=== PATIENT | female | born 1945 | race Caucasian/White ===

== ENCOUNTER 2016-06-18 12:05 | Emergency (ER) | payer OTHER ==
[2016-06-18 12:10] VITALS: TEMP 98.2; BMI 28.0
--- NOTE | 2016-06-18 12:46 | PDOC ---
History of Present Illness - General History Source: Patient Exam Limitations: No Limitations - History of Present Illness Initial Comments: 06/18/16 12:59 The patient is a 70 year old female with a significant past medical history of IDDM (Lantus and Metformin) and hypercholesterolemia, who presents to the ER with high blood sugar (over 300) this morning and cough for one week. Patient states her blood sugar is out of control today. She says she took her regular dose of diabetes medication, without relief of symptoms. Patient says she has had a cough and left ear pain for one week. She says she came to the ER to get antibiotics for her symptoms. Patient says she has a diabetic doctor and no PCP. She reports she is unaware of what to do when her sugar is that high and says she never discussed it with her diabetic doctor. Denies nausea, vomiting, diarrhea Denies fever, chills Denies headache, dizziness, lightheadedness Allergies: NKDA <Alma Rosa Cooley - Last Filed: 06/18/16 14:35> <Hay Harris - Last Filed: 06/18/16 15:06> - General Chief Complaint: Blood Sugar Problem Stated Complaint: COUGH Time Seen by Provider: 06/18/16 12:41 Past History <Alma Rosa Cooley - Last Filed: 06/18/16 14:35> - Past Medical History Diabetes: Yes Hypercholesterolemia: Yes - Psycho/Social/Smoking Cessation Hx Anxiety: No Suicidal Ideation: No Smoking Status: No Smoking History: Never smoked Number of Cigarettes Smoked Daily: 0 Hx Alcohol Use: No Drug/Substance Use Hx: No Substance Use Type: None <Hay Harris - Last Filed: 06/18/16 15:06> - Past Medical History Allergies/Adverse Reactions: Allergies Allergy/AdvReac Type Severity Reaction Status Date / Time No Known Allergies Allergy Verified 06/18/16 12:10 Home Medications: Ambulatory Orders Insulin Glargine,Hum.rec.anlog [Lantus Solostar PEN] 50 units SQ HS 07/01/12 Atorvastatin Ca [Lipitor -] 10 mg PO DAILY 03/18/14 Metformin HCl [Metformin HCl ER] 100 mg PO DAILY 03/18/14 Levofloxacin [Levaquin] 750 mg PO DAILY #10 tablet 06/18/16 Review of Systems - Review of Systems Able to Perform ROS?: Yes Comments:: 06/18/16 12:59 GENERAL/CONSTITUTIONAL: No fever or chills. No weakness. HEAD, EYES, EARS, NOSE AND THROAT: L ear pain. No change in vision. No ear discharge. No sore throat. CARDIOVASCULAR: No chest pain or shortness of breath. RESPIRATORY: Cough. No wheezing, or hemoptysis. GASTROINTESTINAL: No nausea, vomiting, diarrhea or constipation. GENITOURINARY: No dysuria, frequency, or change in urination. MUSCULOSKELETAL: No joint or muscle swelling or pain. No neck or back pain. SKIN: No rash NEUROLOGIC: No headache, vertigo, loss of consciousness, or change in strength/ sensation. ENDOCRINE: No increased thirst. No abnormal weight change. HEMATOLOGIC/LYMPHATIC: No anemia, easy bleeding, or history of blood clots. ALLERGIC/IMMUNOLOGIC: No hives or skin allergy. <Algolux,Alma Rosa - Last Filed: 06/18/16 14:35> *Physical Exam - Vital Signs Last Vital Signs Temp Pulse Resp BP Pulse Ox 98.2 F 105 H 20 152/88 98 06/18/16 12:06 06/18/16 12:06 06/18/16 12:06 06/18/16 12:06 06/18/16 12:06 - Physical Exam Comments: 06/18/16 13:00 GENERAL/CONSTITUTIONAL: No fever or chills. No weakness. HEAD, EYES, EARS, NOSE AND THROAT: No change in vision. No ear pain or discharge. No sore throat. CARDIOVASCULAR: No chest pain or shortness of breath. RESPIRATORY: No cough, wheezing, or hemoptysis. GASTROINTESTINAL: No nausea, vomiting, diarrhea or constipation. GENITOURINARY: No dysuria, frequency, or change in urination. MUSCULOSKELETAL: No joint or muscle swelling or pain. No neck or back pain. SKIN: No rash NEUROLOGIC: No headache, vertigo, loss of consciousness, or change in strength/ sensation. ENDOCRINE: No increased thirst. No abnormal weight change. HEMATOLOGIC/LYMPHATIC: No anemia, easy bleeding, or history of blood clots. ALLERGIC/IMMUNOLOGIC: No hives or skin allergy. <[facility],Alma Rosa - Last Filed: 06/18/16 14:35> - Vital Signs Last Vital Signs Temp Pulse Resp BP Pulse Ox 98.2 F 105 H 20 152/88 98 06/18/16 12:06 06/18/16 12:06 06/18/16 12:06 06/18/16 12:06 06/18/16 12:06 <Hay Harris - Last Filed: 06/18/16 15:06> ED Treatment Course - LABORATORY CBC & Chemistry Diagram: 06/18/16 13:06 06/18/16 13:06 - RADIOLOGY Radiograph Interpretation: 06/18/16 14:35 Chest XR impression reported by Dr. Elliot Jane: No acute pathology. Large heart. No comparison studies. <LenoraAlma Rosa - Last Filed: 06/18/16 14:35> - LABORATORY CBC & Chemistry Diagram: 06/18/16 13:06 06/18/16 13:06 <Hay Harris - Last Filed: 06/18/16 15:06> Medical Decision Making - Medical Decision Making 06/18/16 13:00 Patient is a 70 year old female with a significant past medical history of IDDM. Patient had a blood sugar of about 300 today. She reports she is unaware of what to do when her sugar is that high and says she never discussed it with her diabetic doctor. Will do labs <LenoraAlma Rosa - Last Filed: 06/18/16 14:35> *DC/Admit/Observation/Transfer - Attestations Scribe Attestion: 06/18/16 13:02 Documentation prepared by Alma Rosa Cooley, acting as medical records specialist for Hay Harris DO. <LenoraAlma Rosa - Last Filed: 06/18/16 14:35> - Discharge Dispostion Admit: No - Attestations Physician Attestion: 06/18/16 12:41 I, Dr. Hay Harris, attest that this document has been prepared under my direction and personally reviewed by me in its entirety. I further attest, that it accurately reflects all work, treatment, procedures and medical decision -making performed by me. <Hay Harris - Last Filed: 06/18/16 15:06> Diagnosis at time of Disposition: Bronchitis - Discharge Dispostion Disposition: HOME Condition at time of disposition: Good - Prescriptions Prescriptions: Levofloxacin [Levaquin] 750 mg PO DAILY #10 tablet - Patient Instructions Printed Discharge Instructions: DI for Hyperglycemia -- Adult, DI for Acute Bronchitis Additional Instructions: Jazmín- Start the levaquin tomorrow. Drink plenty of fluids, check your sugars often. Follow up with your doctor next week and return to us if worse or any 0roblems. Jorge- Dr. Hay Harris
[2016-06-18] MEDS ORDERED: SODIUM CHLORIDE 1,000 ML IV STA (12:58)
[2016-06-18 13:25] LABS: BASOPHIL 1.2 % (0-2.0); EOSINOPHIL 2.7 % (0-4.5); MCH 26.7 pg (25.7-33.7); MCHC 32.8 g/dl (32.0-36.0); MEAN CELL VOLUME 81.3 fl (80-96); MEAN PLT VOLUME 7.8 fl (7.5-11.1); NEUTROPHILS 70.2 % (42.8-82.8); PLATELET COUNT 280 K/MM3 (134-434); RDW 12.3 % (11.6-15.6); WHITE BLOOD COUNT 8.6 K/mm3 (4.0-10.0)
[2016-06-18 13:41] LABS: ALK PHOS 185 U/L (45-117); ANION GAP 10 (8-16); BILIRUBIN,TOTAL 0.3 mg/dL (0.2-1.0); CO2 30 mmol/L (21-32); COCKROFT - GAULT 62.05; CREATININE 0.9 mg/dL (0.55-1.02); GLUCOSE,RANDOM 162 mg/dL (74-106); SGOT/AST 16 U/L (15-37); SGPT/ALT 44 U/L (12-78)
[2016-06-18 14:55] LABS: ACETONE SERUM NEGATIVE (NEGATIVE)
[2016-06-18] MEDS ORDERED: LEVOFLOXACIN 250 MG TABLET (FP) ONE (15:13)
[2016-06-18] MEDS ORDERED: LEVOFLOXACIN 500 MG TABLET (FP) ONE (15:13)
[2016-06-18 15:21] VITALS: BP 154/76; PULSE 100
[2016-06-18] MEDS ORDERED: LEVOFLOXACIN 750 MG TABLET PO ONE (15:21)
[2016-06-19] MEDS ORDERED: LEVOFLOXACIN 750 MG TABLET PO ONE (15:03)
== END 2016-06-18 15:22 | disposition home or self-care (01) ==
LOC: JER 12:05
PROC: 3E0337Z Introduction of Electrolytic and Water Balance Substance into Peripheral Vein, Percutaneous Approach (ICD-10-PCS; principal; 2016-06-18)
DX: J40 Bronchitis, not specified as acute or chronic (principal); E11.9 Type 2 diabetes mellitus without complications; E78.00 Pure hypercholesterolemia, unspecified; Z79.4 Long term (current) use of insulin
CPT/HCPCS: 36415; 71010-TC; 80053; 82009; 83880; 85025; 85610; 96360; 99285-25

== ENCOUNTER 2017-08-28 12:36 | Inpatient (IN) | payer OTHER ==
[2017-08-28 12:54] VITALS: BMI 27.4
--- NOTE | 2017-08-28 13:32 | PDOC ---
History of Present Illness - General History Source: Patient Exam Limitations: No Limitations - History of Present Illness Initial Comments: 08/28/17 14:06 The patient is a 71 year old female, with a significant PMH of diabetes and HTN , who presents to the emergency department complaining of dizziness that began yesterday and headache that began this morning. . Patient reports she felt lightheaded and dizzy while at work and had to support herself with the wall. She denies any loss of consciousness. She describes the pain as constant stating that it was the most severe headache shes ever had. The patient has been experiencing recent stress secondary to recently losing her back in Feb 2017. Patient states her last recent travel was 24 days ago to [place]. The patient denies chest pain and shortness of breath.Patient denies tingling and numbness. Denies fever, chills, nausea, vomit, diarrhea and constipation.Denies dysuria, frequency, urgency and hematuria. Allergies: NKDA Past surgical history: None reported Social history: None reported PCP: None reported <Greta Blount - Last Filed: 08/28/17 15:12> - General History Source: Patient Exam Limitations: No Limitations <Kacey Bermudez - Last Filed: 08/29/17 10:50> - General Chief Complaint: Lightheaded Stated Complaint: LIGHTHEADED Time Seen by Provider: 08/28/17 13:13 Past History <Greta Blount - Last Filed: 08/28/17 15:12> - Past Medical History COPD: No DVT: No Dementia: No Diabetes: Yes Hypercholesterolemia: Yes - Immunization History Immunization Up to Date: Yes - Suicide/Smoking/Psychosocial Hx Smoking Status: No Smoking History: Never smoked Have you smoked in the past 12 months: No Number of Cigarettes Smoked Daily: 0 Information on smoking cessation initiated: No Hx Alcohol Use: No Drug/Substance Use Hx: No Substance Use Type: None <Kacey Bermudez - Last Filed: 08/29/17 10:50> - Past Medical History Allergies/Adverse Reactions: Allergies Allergy/AdvReac Type Severity Reaction Status Date / Time No Known Allergies Allergy Verified 08/28/17 12:50 Home Medications: Ambulatory Orders Insulin Glargine,Hum.rec.anlog [Lantus Solostar PEN] 50 units SQ DAILY 07/01/12 Metformin HCl [Metformin HCl ER] 500 mg PO BID 03/18/14 Review of Systems - Review of Systems Able to Perform ROS?: Yes Comments:: 08/28/17 14:12 ADULT ROS GENERAL/CONSTITUTIONAL: No fever or chills. No weakness. HEAD, EYES, EARS, NOSE AND THROAT: No change in vision. No ear pain or discharge. No sore throat. CARDIOVASCULAR: No chest pain or shortness of breath. RESPIRATORY: No cough, wheezing, or hemoptysis. GASTROINTESTINAL: No nausea, vomiting, diarrhea or constipation. GENITOURINARY: No dysuria, frequency, or change in urination. MUSCULOSKELETAL: No joint or muscle swelling or pain. No neck or back pain. SKIN: No rash NEUROLOGIC:+ headache, dizziness. No vertigo loss of consciousness, or change in strength/sensation. ENDOCRINE: No increased thirst. No abnormal weight change. HEMATOLOGIC/LYMPHATIC: No anemia, easy bleeding, or history of blood clots. ALLERGIC/IMMUNOLOGIC: No hives or skin allergy. <Greta Blount - Last Filed: 08/28/17 15:12> *Physical Exam - Vital Signs Last Vital Signs Temp Pulse Resp BP Pulse Ox 97.7 F 62 16 163/68 98 08/28/17 12:51 08/28/17 12:51 08/28/17 12:51 08/28/17 12:51 08/28/17 12:51 - Physical Exam Comments: GENERAL: The patient is in no acute distress. HEAD: Normal with no signs of trauma. EYES: PERRLA, EOMI, sclera anicteric, conjunctiva clear. ENT: Ears normal, nares patent, oropharynx clear without exudates. Moist mucous membranes. NECK: Normal range of motion, supple without lymphadenopathy, JVD, or masses. LUNGS: Breath sounds equal, clear to auscultation bilaterally. No wheezes, and no crackles. HEART:Regular rate and rhythm, normal S1 and S2 without murmur, rub or gallop. ABDOMEN: Soft, nontender, normoactive bowel sounds. No guarding, no rebound. No masses palpable. EXTREMITIES: Normal range of motion, no edema. No clubbing or cyanosis. No erythema, or tenderness. NEUROLOGICAL: Cranial nerves II through XII grossly intact. Normal speech. No focal neurological deficits. MUSCULOSKELETAL: Back non-tender to palpation, no CVA tenderness SKIN: Warm, Dry, normal turgor, no rashes or lesions noted. 08/28/17 14:09 <Greta Blount - Last Filed: 08/28/17 15:12> - Vital Signs Last Vital Signs Temp Pulse Resp BP Pulse Ox 97.7 F 62 16 163/68 98 08/28/17 12:51 08/28/17 12:51 08/28/17 12:51 08/28/17 12:51 08/28/17 12:51 <Kacey Bermudez - Last Filed: 08/29/17 10:50> ED Treatment Course - LABORATORY CBC & Chemistry Diagram: 08/28/17 14:00 08/28/17 14:00 <Greta Blount - Last Filed: 08/28/17 15:12> - LABORATORY CBC & Chemistry Diagram: 08/29/17 06:00 08/29/17 06:00 - RADIOLOGY Radiology Studies Ordered: Category Date Time Status CHEST X-RAY PORTABLE* [RAD] Stat Radiology 08/28/17 13:28 Ordered <Kacey Bermudez - Last Filed: 08/29/17 10:50> Medical Decision Making - Medical Decision Making 08/28/17 15:12 Dr. Christensen was paged and notified via phone service. <Greta Blount - Last Filed: 08/28/17 15:12> - Critical Care Time Total Critical Care Time (minutes): 60 Critical Care Statement: The care of this patient involved high complexity decision making to prevent further life threatening deterioration of the patient 's condition and/or to evaluate & treat vital organ system(s) failure or risk of failure. - Medical Decision Making 08/28/17 14:48 Laboratory Tests 08/28/17 08/28/17 14:00 14:00 WBC 7.9 Hgb 14.6 Hct 44.0 Plt Count 246 INR 0.91 EKG:SR, rate of 64 bpm, axis nml, no st elevations, st depression v4, v5. t wave inversion 08/28/17 14:53 CT demonstrates atrophy, microvascular ischemic changes, no acute intravranial pahtology 08/28/17 14:58 Upon re assessment, pt feels much better Pain headache resolved without pain medications Pt is ambulatory with a steady gait Requests something to drink 08/28/17 15:29 Pt 08/28/17 15:29 Laboratory Tests 08/28/17 14:00 Sodium 135 L Potassium 4.5 Chloride 101 Carbon Dioxide 28 BUN 14 Creatinine 1.0 Random Glucose 395 H* Creatine Kinase 102 Troponin I 1.23 H* Troponin (+) I have had a long conversation with this patient She is refusing to stay in the hospital Will do CTA to rule out PE as she returned from [place] < 1 month ago 08/28/17 15:31 Dr. Gay in the ER to see this patient 08/28/17 16:13 CTA pending 08/28/17 16:[address] Gay was able to convince this patient to stay in the hospital ASA ordered Lovenox ordered Clinical Impression: NSTEMI, initial presentation <Kacey Bermudez - Last Filed: 08/29/17 10:50> *DC/Admit/Observation/Transfer - Attestations Scribe Attestion: 08/28/17 14:06 Documentation prepared by Greta Blount, acting as medical attendant for Kacey Bermudez MD <Greta Blount - Last Filed: 08/28/17 15:12> - Discharge Dispostion Decision to Admit order: Yes <Kacey Bermudez - Last Filed: 08/29/17 10:50> Diagnosis at time of Disposition: Troponin level elevated - Discharge Dispostion Condition at time of disposition: Guarded
[2017-08-28 14:04] LABS: BASO % 1.2 % (0-2.0); EOS % 1.6 % (0-4.5); HEMOGLOBIN 14.6 GM/dL (10.7-15.3); LYMPH % 13.4 % (8-40); MCH 26.8 pg (25.7-33.7); MCHC 33.2 g/dl (32.0-36.0); MEAN CELL VOLUME 80.7 fl (80-96); MEAN PLT VOLUME 8.2 fl (7.5-11.1); MONO % 5.8 % (3.8-10.2); PLATELET COUNT 246 K/MM3 (134-434); RBC 5.45 M/mm3 (3.60-5.2); RDW 13.1 % (11.6-15.6); WHITE BLOOD COUNT 7.9 K/mm3 (4.0-10.0)
[2017-08-28 14:19] LABS: INR 0.91 (0.82-1.09); PROTHROMBIN TIME (PATIENT) 10.3 SEC (9.7-13.0)
--- NOTE | 2017-08-28 14:24 | EKG ---
Test Reason : Blood Pressure : / mmHG Vent. Rate : 064 BPM Atrial Rate : 064 BPM P-R Int : 134 ms QRS Dur : 084 ms QT Int : 458 ms P-R-T Axes : -18 052 119 degrees QTc Int : 472 ms NORMAL SINUS RHYTHM ABNORMAL ECG NO PREVIOUS ECGS AVAILABLE Confirmed by Mamadou Chamorro ([id number]) on 08/28/2017 2:24:17 PM Referred By: Confirmed By:Mamadou Chamorro
[2017-08-28 14:49] LABS: ALBUMIN 3.5 g/dl (3.4-5.0); ANION GAP 6 (8-16); BILIRUBIN,TOTAL 0.2 mg/dL (0.2-1.0); BLOOD UREA NITROGEN 14 mg/dL (7-18); CALCIUM 8.7 mg/dL (8.5-10.1); CHLORIDE 101 mmol/L (98-107); CO2 28 mmol/L (21-32); MAGNESIUM 2.2 mg/dL (1.8-2.4); POTASSIUM 4.5 mmol/L (3.5-5.1); SGOT/AST 26 U/L (15-37); SGPT/ALT 38 U/L (12-78); SODIUM 135 mmol/L (136-145); TOT PROT 6.6 g/dl (6.4-8.2)
[2017-08-28 14:52] LABS: ALK PHOS 159 U/L (45-117)
[2017-08-28 15:00] LABS: GLUCOSE,RANDOM 395 mg/dL (74-106)
[2017-08-28] MEDS ORDERED: ASPIRIN 325 MG TABLET PO ONE (15:03)
[2017-08-28] MEDS ORDERED: ASPIRIN 325 MG TABLET ONE (15:06)
--- NOTE | 2017-08-28 15:16 | CON.CARD ---
Consult Consult Specialty:: cardiology Reason for Consultation:: + TNI; multiple cardiac risks; EKG changes - History of Present Illness Chief Complaint: Pt A&Ox3; presently asymptomatic, but has had episode of LARSEN and dizziiness earlier today resulting in ER visit; denies chest pain History of Present Illness: The patient is a 71 year old white female (adebayo Quiles), with a significant PMH of diabetes, HTN, hyperlipidemia, stress/depression since of 2016, who presents to the emergency department complaining of dizziness that began yesterday and headache that began this morning. . Patient reports she felt lightheaded and dizzy while at work and had to support herself with the wall. She denies any loss of consciousness. She describes the pain as constant stating that it was the most severe headache shes ever had. Patient states her last recent travel was 24 days ago to [place]. The patient denies chest pain and shortness of breath.Patient denies tingling and numbness. Denies fever, chills, nausea, vomit, diarrhea and constipation.Denies dysuria, frequency, urgency and hematuria. Allergies: NKDA Past surgical history: None reported - History Source History Provided By: Patient, Medical Record Limitations to Obtaining History: No Limitations - Past Medical History Cardio/Vascular: Yes: HTN, Hyperlipdemia, Other (DM) Reproductive: Yes: Postmenopausal ...: No Psych: Yes: Anxiety, Depression - Past Surgical History Past Surgical History: Yes: None - Alcohol/Substance Use Hx Alcohol Use: No - Smoking History Smoking history: Never smoked Have you smoked in the past 12 months: No Aproximately how many cigarettes per day: 0 Home Medications - Allergies Allergies/Adverse Reactions: Allergies Allergy/AdvReac Type Severity Reaction Status Date / Time No Known Allergies Allergy Verified 08/28/17 12:50 - Home Medications Home Medications: Ambulatory Orders Insulin Glargine,Hum.rec.anlog [Lantus Solostar PEN] 50 units SQ DAILY 07/01/12 Metformin HCl [Metformin HCl ER] 500 mg PO BID 03/18/14 Family Disease History - Family Disease History Family Disease History: Heart Disease: Mother (DM; of "[place]" age 68), Brother (stents is his 70s) Review of Systems - Review of Systems Constitutional: reports: Other (dizzy) Eyes: reports: No Symptoms HENT: reports: Other (headache) Neck: reports: No Symptoms Cardiovascular: reports: No Symptoms Respiratory: reports: No Symptoms Gastrointestinal: reports: No Symptoms Genitourinary: reports: No Symptoms Breasts: reports: No Symptoms Reported Neurological: reports: Dizziness, Headache Endocrine: reports: No Symptoms Hematology/Lymphatic: reports: No Symptoms Psychiatric: reports: Anxiety, Depression - Risk Factors Known Risk Factors: Yes: Age, Diabetes Mellitus, Family History, Hypercholesterolemia, Hypertension, Physical Inactivity, Other (depression) Vital Signs: Vital Signs Temperature 97.7 F 08/28/17 12:51 Pulse Rate 62 08/28/17 12:51 Respiratory Rate 16 08/28/17 12:51 Blood Pressure 163/68 08/28/17 12:51 O2 Sat by Pulse Oximetry (%) 98 08/28/17 12:51 Constitutional: Yes: Anxious Eyes: Yes: WNL HENT: Yes: WNL Neck: Yes: WNL Respiratory: Yes: WNL Gastrointestinal: Yes: WNL Renal/: No: Anuria Cardiovascular: Yes: WNL JVD: No Carotid Bruit: No PMI: Non-Displaced Heart Sounds: Yes: S1, S2, S4 Musculoskeletal: Yes: WNL Extremities: Yes: WNL Edema: No Peripheral Pulses WNL: Yes Integumentary: Yes: WNL Neurological: Yes: Alert, Oriented Psychiatric: Yes: Alert, Oriented, Other (anxious) - Other Data Labs, Other Data: CBC, BMP 08/28/17 14:00 08/28/17 14:00 INR, PTT INR 0.91 (0.82-1.09) 08/28/17 14:00 Troponin, BNP 08/28/17 14:00 Troponin I 1.23 H* Troponin, BNP 08/28/17 14:00 Troponin I 1.23 H* Abnormal Lab Results 08/28/17 08/28/17 08/28/17 14:00 14:00 19:20 RBC 5.45 H Sodium 135 L Anion Gap 6 L Random Glucose 395 H* Alkaline Phosphatase 159 H Troponin I 1.23 H* 1.78 H* Cholesterol 214 H Total LDL Cholesterol 121 H HDL Cholesterol 68 H 08/28/17 21:50 RBC Sodium Anion Gap Random Glucose 490 H* Alkaline Phosphatase Troponin I Cholesterol Total LDL Cholesterol HDL Cholesterol Imaging - Results Chest X-ray: Image Reviewed (no acute pathology) Cat Scan: Image Reviewed (Head: no acute IC pathology Chest: small nodules, likely benign (3 months f/u with CT recommended)) EKG: Image Reviewed (NSR; mild lateral ST horizontal depression suggestion of ischemia, with T wave inversions in I and aVL) Problem List - Problems (1) Anxiety and depression Code(s): F41.9 - ANXIETY DISORDER, UNSPECIFIED; F32.9 - MAJOR DEPRESSIVE DISORDER, SINGLE EPISODE, UNSPECIFIED (2) Diabetes Assessment/Plan: F/u HGBA1C. Start lisinopril (HTN; DM; CAD). Code(s): E11.9 - TYPE 2 DIABETES MELLITUS WITHOUT COMPLICATIONS (3) HTN (hypertension) Assessment/Plan: On metoprolol Start lisinopril Code(s): I10 - ESSENTIAL (PRIMARY) HYPERTENSION (4) Hyperlipidemia Assessment/Plan: Agree with high-dose statin. Code(s): E78.5 - HYPERLIPIDEMIA, UNSPECIFIED (5) [place] cardiac risk >20% in next 10 years Assessment/Plan: coronary artery evaluation. Code(s): Z91.89 - [facility] PERSONAL RISK FACTORS, NOT ELSEWHERE CLASSIFIED (6) EKG abnormalities Assessment/Plan: Suggestive of NSTEMI and/or lateral wall ischemia. F/u serially; f/u with telemetry monitoring. Code(s): R94.31 - ABNORMAL ELECTROCARDIOGRAM [ECG] [EKG] (7) Troponin level elevated Assessment/Plan: TNI 1.23 Despite normal CK, NSTEMI is first consideration (no chest pain, but pt has DM with highly elevated glucose; dizziness + headache; EKG changes; multiple CAD risks). F/u TNi serially. Serial EKGs; telemetry monitoring on telemetry floor or ICU. Continue Lovenox. ASA Clopidogrel On metoprolol (change to bid with tartrate for 24 hour coverage). Lisinopril (HTN; DM; CAD). Coronary artery evaluation. Code(s): R74.8 - ABNORMAL LEVELS OF OTHER SERUM ENZYMES (8) NSTEMI (non-ST elevated myocardial infarction) Assessment/Plan: see under "elevated Troponin" Code(s): I21.4 - NON-ST ELEVATION (NSTEMI) MYOCARDIAL INFARCTION
[2017-08-28 16:44] LABS: CHOLESTEROL 214 mg/dL (50-200); TRIGLYCERIDES 110 mg/dL (35-160)
[2017-08-28 16:51] LABS: HDL CHOLESTEROL 68 mg/dL (40-60)
[2017-08-28] MEDS ORDERED: ENOXAPARIN NA (PORCINE) 80 MG/0.8 ML DISP.SYRIN SQ SCH (17:00)
[2017-08-28] MEDS ORDERED: ENOXAPARIN NA (PORCINE) 80 MG/0.8 ML DISP.SYRIN SQ ONE ×2 (17:00→17:13)
--- NOTE | 2017-08-28 18:05 | HP ---
CHIEF COMPLAINT: Weakness, headache PCP: none HISTORY OF PRESENT ILLNESS: This is a 71 year old female with PMHx of dm, HTN, who presented to the ED with weakness, headache, fatigue. The patient reports that she recently returned from [facility] on 08/23. She reports yesterday she was at work and "just wasn't feeling right". She then went home and started to feel weak so she went to bed. She woke up this morning with a frontal headache, took Ibuprofen with full relief. She then states she attempted to go to work but came to [facility] to be evaluated. She denies any chest pain, palpitations, shortness of breath, dizziness, syncope, lower extremity swelling, urinary symptoms, fever, chills. Off note, she reports she was at the dentist 1 month ago and was told she has high blood pressure, SBPs 190s. She states she did not see a physician and then left for [place] for 1 month, so she is not on any antihypertensives. ER course was notable for: (1) Glucose 395 (2) Trop 1.23 (3) Chest CTA with no evidence of pulmonary embolism Recent Travel: returned from [facility] on 08/23 PAST MEDICAL HISTORY: as above PAST SURGICAL HISTORY: denies Social History: Smoking: denies Alcohol: denies Drugs: denies Family History: Mother age 68 from [place] Sister age 58 from cancer, had HTN Brother A&W, had [place] 20 years ago Allergies No Known Allergies Allergy (Verified 08/28/17 12:50) HOME MEDICATIONS: Home Medications Medication Instructions Recorded Insulin Glargine,Hum.rec.anlog 50 units SQ DAILY 07/01/12 [Lantus Solostar PEN] Metformin HCl [Metformin HCl ER] 500 mg PO BID 03/18/14 REVIEW OF SYSTEMS CONSTITUTIONAL: Malaise and generalized weakness since yesterday evening Absent: fever, chills, diaphoresis, loss of appetite, weight change HEENT: Absent: rhinorrhea, nasal congestion, throat pain, throat swelling, difficulty swallowing, mouth swelling, ear pain, eye pain, visual changes CARDIOVASCULAR: Absent: chest pain, syncope, palpitations, irregular heart rate, lightheadedness , peripheral edema RESPIRATORY: Absent: cough, shortness of breath, dyspnea with exertion, orthopnea, wheezing, stridor, hemoptysis GASTROINTESTINAL: Absent: abdominal pain, abdominal distension, nausea, vomiting, diarrhea, constipation, melena, hematochezia GENITOURINARY: Absent: dysuria, frequency, urgency, hesitancy, hematuria, flank pain, genital pain MUSCULOSKELETAL: Absent: myalgia, arthralgia, joint swelling, back pain, neck pain SKIN: Absent: rash, itching, pallor HEMATOLOGIC/IMMUNOLOGIC: Absent: easy bleeding, easy bruising, lymphadenopathy, frequent infections ENDOCRINE: Absent: unexplained weight gain, unexplained weight loss, heat intolerance, cold intolerance NEUROLOGIC: Front headache this morning that was relived with Ibuprofen Absent: focal weakness or paresthesias, dizziness, unsteady gait, seizure, mental status changes, bladder or bowel incontinence PSYCHIATRIC: Absent: anxiety, depression, suicidal or homicidal ideation, hallucinations. PHYSICAL EXAMINATION Vital Signs - 24 hr 08/28/17 08/28/17 12:51 16:04 Temperature 97.7 F Pulse Rate 62 Pulse Rate [ 78 Right Radial] Respiratory 16 17 Rate Blood Pressure 163/68 Blood Pressure 188/82 [Left Arm] O2 Sat by Pulse 98 98 Oximetry (%) GENERAL: Awake, alert, and fully oriented, in no acute distress. HEAD: Normal with no signs of trauma. EYES: Pupils equal, round and reactive to light, extraocular movements intact, sclera anicteric, conjunctiva clear. No lid lag. EARS, NOSE, THROAT: Ears normal, nares patent, oropharynx clear without exudates. Moist mucous membranes. NECK: Normal range of motion, supple without lymphadenopathy, JVD, or masses. LUNGS: Breath sounds equal, clear to auscultation bilaterally. No wheezes, and no crackles. No accessory muscle use. HEART: Regular rate and rhythm, normal S1 and S2 without murmur, rub or gallop. ABDOMEN: Soft, nontender, not distended, normoactive bowel sounds, no guarding, no rebound, no masses. No hepatomegaly or splenomegaly. MUSCULOSKELETAL: Normal range of motion at all joints. No bony deformities or tenderness. No CVA tenderness. UPPER EXTREMITIES: 2+ pulses, warm, well-perfused. No cyanosis. No clubbing. No peripheral edema. LOWER EXTREMITIES: 2+ pulses, warm, well-perfused. No calf tenderness. No peripheral edema. NEUROLOGICAL: Cranial nerves II-XII intact. Normal speech. Normal gait. PSYCHIATRIC: Cooperative. Good eye contact. Appropriate mood and affect. SKIN: Warm, dry, normal turgor, no rashes or lesions noted, normal capillary refill. Laboratory Results - last 24 hr 08/28/17 08/28/17 08/28/17 14:00 14:00 14:00 WBC 7.9 RBC 5.45 H Hgb 14.6 Hct 44.0 MCV 80.7 MCH 26.8 MCHC 33.2 RDW 13.1 Plt Count 246 MPV 8.2 Absolute Neuts (auto) 6.1 Neutrophils % 78.0 Lymphocytes % 13.4 Monocytes % 5.8 Eosinophils % 1.6 Basophils % 1.2 Nucleated RBC % 0 PT with INR 10.30 INR 0.91 Sodium 135 L Potassium 4.5 Chloride 101 Carbon Dioxide 28 Anion Gap 6 L BUN 14 Creatinine 1.0 Creat Clearance w eGFR 54.50 Random Glucose 395 H* Calcium 8.7 Magnesium 2.2 Total Bilirubin 0.2 AST 26 ALT 38 Alkaline Phosphatase 159 H Creatine Kinase 102 Troponin I 1.23 H* Total Protein 6.6 Albumin 3.5 Triglycerides 110 Cholesterol 214 H Total LDL Cholesterol 121 H HDL Cholesterol 68 H TSH 0.59 08/28/17 16:06 WBC RBC Hgb Hct MCV MCH MCHC RDW Plt Count MPV Absolute Neuts (auto) Neutrophils % Lymphocytes % Monocytes % Eosinophils % Basophils % Nucleated RBC % PT with INR INR Sodium Potassium Chloride Carbon Dioxide Anion Gap BUN Creatinine Creat Clearance w eGFR Random Glucose Calcium Magnesium Total Bilirubin AST ALT Alkaline Phosphatase Creatine Kinase Troponin I Total Protein Albumin Triglycerides Cancelled Cholesterol Cancelled Total LDL Cholesterol Cancelled HDL Cholesterol Cancelled TSH Cancelled Assessment: This is a 71 year old female with PMHx of dm, HTN, who presented to the ED with weakness, headache, fatigue. Plan: 1) NSTEMI - Cardiac monitoring - ASA 325 given in the ED, will continue 81mg po daily - Lovenox 70mg ordered - Start high dose statin given DM, HTN (not on home medications) and lipid panel - Start Lopressor - F/u ECHO - For possible cardiac cath - F/u cardiology consult 2) DM - BGM ACHS - ISS ACHS - HgbA1c 3) HTN - Not on home medications - Uncontrolled - Start Lopressor 4) F/E/N: - Diabetic/sodium controlled diet - NPO after midnight if stress test or cardiac cath ordered 5) Prophylaxis: - Full dose Lovenox 6) Dispo: - Requires continued inpatient care CODE STATUS: FULL CODE Visit type - Emergency Visit Emergency Visit: Yes ED Registration Date: 08/28/17 Care time: The patient presented to the Emergency Department on the above date and was hospitalized for further evaluation of their emergent condition. - New Patient This patient is new to me today: Yes Date on this admission: 08/28/17 - Critical Care Critical Care patient: No Hospitalist Screening - Colonoscopy Questionnaire Colonoscopy Questionnaire: Colonoscopy Questionnaire - Patient: 50 - 75 years old and never had a screening colonoscopy: Unknown History of colon or rectal polyps, or CA: Unknown History of IBD, Crohn's disease or UC: Unknown History of abdominal radiation therapy as a child: Unknown - Relative: 1 with colon or rectal CA, or polyps at age 60 or younger: Unknown Colon or rectal CA diagnosed at age 45 or younger: Unknown Multiple relatives with colon or rectal CA: Unknown - Outcome: Screening Result: Negative Screen
[2017-08-28] MEDS ORDERED: METOPROLOL TARTRATE 25 MG TABLET (FP) PO SCH (18:45)
[2017-08-28] MEDS ORDERED: INSULIN (NOVOLOG) ASPART 100 UNITS/ML 10ML VIAL ONE (21:09)
[2017-08-28] MEDS ORDERED: INSULIN (NOVOLOG) ASPART 100 UNITS/ML 10ML VIAL SQ ONE (22:00)
[2017-08-28] MEDS ORDERED: ATORVASTATIN CA 80 MG TABLET (FP) PO SCH (22:00)
[2017-08-28] MEDS: INSULIN SLIDING SCALE (NOVOLOG) 1 VIAL SQ SCH (22:22)
[2017-08-29] MEDS ORDERED: LISINOPRIL 5 MG TABLET (FP) PO ONE (00:25)
[2017-08-29] MEDS: INSULIN SLIDING SCALE (NOVOLOG) 1 VIAL SQ SCH ×2 (06:16→12:20)
[2017-08-29 07:40] LABS: BASO % 0.9 % (0-2.0); EOS % 0.3 % (0-4.5); HEMATOCRIT 43.6 % (32.4-45.2); HEMOGLOBIN 14.5 GM/dL (10.7-15.3); MCH 26.9 pg (25.7-33.7); MCHC 33.2 g/dl (32.0-36.0); MEAN CELL VOLUME 81.1 fl (80-96); MEAN PLT VOLUME 8.4 fl (7.5-11.1); MONO % 5.2 % (3.8-10.2); NEUT % 80.6 % (42.8-82.8); PLATELET COUNT 240 K/MM3 (134-434); RBC 5.38 M/mm3 (3.60-5.2); RDW 13.1 % (11.6-15.6); WHITE BLOOD COUNT 9.9 K/mm3 (4.0-10.0)
[2017-08-29 08:02] LABS: CHLORIDE 100 mmol/L (98-107); POTASSIUM 3.9 mmol/L (3.5-5.1); SODIUM 137 mmol/L (136-145)
[2017-08-29 08:15] LABS: ALBUMIN 3.3 g/dl (3.4-5.0); ALK PHOS 122 U/L (45-117); ANION GAP 8 (8-16); BILIRUBIN,TOTAL 0.4 mg/dL (0.2-1.0); BLOOD UREA NITROGEN 13 mg/dL (7-18); CALCIUM 8.5 mg/dL (8.5-10.1); CO2 29 mmol/L (21-32); CREATININE 0.8 mg/dL (0.55-1.02); GLUCOSE,RANDOM 295 mg/dL (74-106); SGOT/AST 49 U/L (15-37); SGPT/ALT 36 U/L (12-78); TOT PROT 6.4 g/dl (6.4-8.2)
--- NOTE | 2017-08-29 08:58 | PN ---
Progress Note (short form) - Note Progress Note: Subjective: The patient was seen and examined at the bedside, she states she would like to eat. Denies any chest pain, shortness of breath, nausea, vomiting Trop trending up, continue to trend Current Medications Generic Name Dose Route Start Last Admin Trade Name Jeaneth PRN Reason Stop Dose Admin Aspirin 81 mg 08/29/17 10:00 Ecotrin - PO DAILY [facility] Atorvastatin Calcium 80 mg 08/28/17 22:00 08/28/17 21:39 Lipitor - PO 80 mg HS ELIZABETH Administration Clopidogrel Bisulfate 75 mg 08/29/17 10:00 Plavix - PO DAILY ELIZABETH Enoxaparin Sodium 70 mg 08/29/17 10:00 Lovenox - SQ BID ELIZABETH Insulin Aspart 1 vial 08/28/17 22:00 08/29/17 06:16 Novolog Vial Sliding Scale - SQ 6 units ACHS ELIZABETH Administration Protocol Lisinopril 2.5 mg 08/29/17 10:00 Prinivil PO DAILY [facility] Metoprolol Tartrate 25 mg 08/29/17 10:00 Lopressor - PO BID [facility] Objective: Vital Signs Period Temp Pulse Resp BP Sys/Crum Pulse Ox Last 24 Hr 97.7 F-98.7 F 54-78 16-18 134-188/59-91 97-98 Physical Exam: General: NAD, A&Ox3 Lungs: CTA bilaterally Heart: RRR, S1S2 Abd: Soft, non-tender, non-distended. Normoactive bowel sounds Ext: Warm, well-perfused. 2+ DP/PT bilaterally Neuro: CN 2-12 intact CBCD WBC 9.9 K/mm3 (4.0-10.0) 08/29/17 06:00 RBC 5.38 M/mm3 (3.60-5.2) H 08/29/17 06:00 Hgb 14.5 GM/dL (10.7-15.3) 08/29/17 06:00 Hct 43.6 % (32.4-45.2) 08/29/17 06:00 MCV 81.1 fl (80-96) 08/29/17 06:00 MCHC 33.2 g/dl (32.0-36.0) 08/29/17 06:00 RDW 13.1 % (11.6-15.6) 08/29/17 06:00 Plt Count 240 K/MM3 (134-434) 08/29/17 06:00 MPV 8.4 fl (7.5-11.1) 08/29/17 06:00 CMP Sodium 137 mmol/L (136-145) 08/29/17 06:00 Potassium 3.9 mmol/L (3.5-5.1) 08/29/17 06:00 Chloride 100 mmol/L (98-107) 08/29/17 06:00 Carbon Dioxide 29 mmol/L (21-32) 08/29/17 06:00 Anion Gap 8 (8-16) 08/29/17 06:00 BUN 13 mg/dL (7-18) 08/29/17 06:00 Creatinine 0.8 mg/dL (0.55-1.02) 08/29/17 06:00 Creat Clearance w eGFR > 60 (>60) 08/29/17 06:00 Random Glucose 295 mg/dL (74-106) H 08/29/17 06:00 Calcium 8.5 mg/dL (8.5-10.1) 08/29/17 06:00 Total Bilirubin 0.4 mg/dL (0.2-1.0) 08/29/17 06:00 AST 49 U/L (15-37) H 08/29/17 06:00 ALT 36 U/L (12-78) 08/29/17 06:00 Alkaline Phosphatase 122 U/L (45-117) H D 08/29/17 06:00 Total Protein 6.4 g/dl (6.4-8.2) 08/29/17 06:00 Albumin 3.3 g/dl (3.4-5.0) L 08/29/17 06:00 CARDIAC ENZYMES Creatine Kinase 180 IU/L (26-192) 08/29/17 01:02 Troponin I 3.70 ng/ml (0.00-0.05) H* 08/29/17 01:02 Assessment: This is a 71 year old female with PMHx of dm, HTN, who presented to the ED with weakness, headache, fatigue. Plan: 1) NSTEMI - Cardiac monitoring - ASA 81 daily - Lovenox 70mg sq bid - Plavix 75mg daily - Lopressor 25mg po bid - Start lisinopril - Lipitor 80mg qhs - F/u ECHO - For possible cardiac cath - Appreciate cardiology consult: awaiting call back to discuss possible transfer 2) DM - BGM ACHS - ISS ACHS - HgbA1c 3) HTN - Not on home medications - Uncontrolled - Continue Lopressor - Lisinopril added 4) F/E/N: - NPO for possible stress test vs. cardiac cath. Awaiting call back from cardiology to discuss - IV fluids 5) Prophylaxis: - Full dose Lovenox 6) Dispo: - Requires continued inpatient care CODE STATUS: FULL CODE Visit type - Emergency Visit Emergency Visit: Yes ED Registration Date: 08/28/17 Care time: The patient presented to the Emergency Department on the above date and was hospitalized for further evaluation of their emergent condition. - New Patient This patient is new to me today: No - Critical Care Critical Care patient: No
[2017-08-29] MEDS ORDERED: SODIUM CHLORIDE 1,000 ML IV SCH (09:15)
[2017-08-29 09:16] VITALS: BP 159/77; PULSE 68; TEMP 98.5
--- NOTE | 2017-08-29 09:48 | PN ---
Progress Note, Physician History of Present Illness: The patient is a 71 year old white female (adebayo Quiles), with a significant PMH of diabetes, HTN, hyperlipidemia, stress/depression since of 2016, who presents to the emergency department complaining of dizziness that began yesterday and headache that began this morning. . Patient reports she felt lightheaded and dizzy while at work and had to support herself with the wall. She denies any loss of consciousness. She describes the pain as constant stating that it was the most severe headache shes ever had. Patient states her last recent travel was 24 days ago to [facility]. The patient denies chest pain and shortness of breath.Patient denies tingling and numbness. Denies fever, chills, nausea, vomit, diarrhea and constipation.Denies dysuria, frequency, urgency and hematuria. - Current Medication List Current Medications: Active Medications Aspirin (Ecotrin -) 81 mg PO DAILY [facility] Atorvastatin Calcium (Lipitor -) 80 mg PO HS [facility] Last Admin: 08/28/17 21:39 Dose: 80 mg Clopidogrel Bisulfate (Plavix -) 75 mg PO DAILY [facility] Enoxaparin Sodium (Lovenox -) 70 mg SQ BID [facility] Sodium Chloride (Normal Saline -) 1,000 mls @ 100 mls/hr IV ASDIR [facility] Insulin Aspart (Novolog Vial Sliding Scale -) 1 vial SQ ACHS [facility]; Protocol Last Admin: 08/29/17 06:16 Dose: 6 units Lisinopril (Prinivil) 2.5 mg PO DAILY [facility] Metoprolol Tartrate (Lopressor -) 25 mg PO BID [facility] - Objective Vital Signs: Vital Signs Temperature 98.5 F 08/29/17 09:00 Pulse Rate 68 08/29/17 09:00 Respiratory Rate 18 08/29/17 09:00 Blood Pressure 159/77 08/29/17 09:00 O2 Sat by Pulse Oximetry (%) 98 08/29/17 09:00 Eyes: Yes: WNL, Conjunctiva Clear, EOM Intact HENT: Yes: WNL, Atraumatic, Normocephalic Neck: Yes: WNL, Supple, Trachea Midline Cardiovascular: Yes: WNL, Regular Rate and Rhythm Respiratory: Yes: WNL, Regular, CTA Bilaterally Gastrointestinal: Yes: WNL, Normal Bowel Sounds Genitourinary: Yes: WNL Musculoskeletal: Yes: WNL Extremities: Yes: WNL Edema: No Integumentary: Yes: WNL Neurological: Yes: WNL, Alert, Oriented ...Motor Strength: WNL Psychiatric: Yes: WNL Labs: CBC, BMP 08/29/17 06:00 08/29/17 06:00 INR, PTT INR 0.91 (0.82-1.09) 08/28/17 14:00 Assessment/Plan - Problems (1) Anxiety and depression Code(s): F41.9 - ANXIETY DISORDER, UNSPECIFIED; F32.9 - MAJOR DEPRESSIVE DISORDER, SINGLE EPISODE, UNSPECIFIED (2) Diabetes Assessment/Plan: F/u HGBA1C. Start lisinopril (HTN; DM; CAD). Code(s): E11.9 - TYPE 2 DIABETES MELLITUS WITHOUT COMPLICATIONS (3) HTN (hypertension) Assessment/Plan: On metoprolol Start lisinopril Code(s): I10 - ESSENTIAL (PRIMARY) HYPERTENSION (4) Hyperlipidemia Assessment/Plan: Agree with high-dose statin. Code(s): E78.5 - HYPERLIPIDEMIA, UNSPECIFIED (5) [place] cardiac risk >20% in next 10 years Assessment/Plan: coronary artery evaluation. Code(s): Z91.89 - [facility] PERSONAL RISK FACTORS, NOT ELSEWHERE CLASSIFIED (6) EKG abnormalities Assessment/Plan: Suggestive of NSTEMI and/or lateral wall ischemia. F/u serially; f/u with telemetry monitoring. Code(s): R94.31 - ABNORMAL ELECTROCARDIOGRAM [ECG] [EKG] (7) Troponin level elevated Assessment/Plan: TNI 1.23 Despite normal CK, NSTEMI is first consideration (no chest pain, but pt has DM with highly elevated glucose; dizziness + headache; EKG changes; multiple CAD risks). F/u TNi serially. Serial EKGs; telemetry monitoring on telemetry floor or ICU. Continue Lovenox. ASA Clopidogrel On metoprolol (change to bid with tartrate for 24 hour coverage). Lisinopril (HTN; DM; CAD). Coronary artery evaluation. Code(s): R74.8 - ABNORMAL LEVELS OF OTHER SERUM ENZYMES (8) NSTEMI (non-ST elevated myocardial infarction) Assessment/Plan: see under "elevated Troponin" Code(s): I21.4 - NON-ST ELEVATION (NSTEMI) MYOCARDIAL INFARCTION nonstemi rising tni cp free cont dapt unfractionated heparin transfer for c. cath today to [facility]
--- NOTE | 2017-08-29 09:54 | EKG ---
Test Reason : Blood Pressure : / mmHG Vent. Rate : 056 BPM Atrial Rate : 056 BPM P-R Int : 142 ms QRS Dur : 086 ms QT Int : 504 ms P-R-T Axes : -06 068 123 degrees QTc Int : 486 ms SINUS BRADYCARDIA NONSPECIFIC ST AND T WAVE ABNORMALITY PROLONGED QT ABNORMAL ECG WHEN COMPARED WITH ECG OF 28-AUG-2017 13:31, T WAVE INVERSION MORE EVIDENT IN LATERAL LEADS Confirmed by JOHN HANNA, TODD ([id number]) on 08/29/2017 9:53:37 AM Referred By: Confirmed By:TODD LOPEZ MD
[2017-08-29] MEDS ORDERED: METOPROLOL TARTRATE 25 MG TABLET (FP) PO SCH (10:00)
[2017-08-29] MEDS ORDERED: LISINOPRIL 5 MG TABLET (FP) PO SCH (10:00)
[2017-08-29] MEDS ORDERED: ENOXAPARIN NA (PORCINE) 80 MG/0.8 ML DISP.SYRIN SQ SCH (10:00)
[2017-08-29] MEDS ORDERED: CLOPIDOGREL BISULFATE 75 MG TABLET (FP) PO SCH (10:00)
[2017-08-29] MEDS ORDERED: ASPIRIN COATED 81 MG TABLET.EC PO SCH (10:00)
[2017-08-29] MEDS ORDERED: HEPARIN NA (PORCINE) 5,000 UNITS/ML 1ML VIAL IVPUSH PRN ×2 (11:34)
[2017-08-29] MEDS ORDERED: HEPARIN INFUSION - 25,000 UNITS/500 ML INFUS.BAG IVPB SCH (11:45)
--- NOTE | 2017-08-29 12:58 | EKG ---
Test Reason : Blood Pressure : / mmHG Vent. Rate : 060 BPM Atrial Rate : 060 BPM P-R Int : 136 ms QRS Dur : 084 ms QT Int : 494 ms P-R-T Axes : 075 063 125 degrees QTc Int : 494 ms NORMAL SINUS RHYTHM PROLONGED QT ABNORMAL ECG WHEN COMPARED WITH ECG OF 29-AUG-2017 02:14, NO SIGNIFICANT CHANGE WAS FOUND Confirmed by TODD LOPEZ MD ([id number]) on 08/29/2017 12:57:53 PM Referred By: SYLVIE WITT Confirmed By:TODD LOPEZ MD
--- NOTE | 2017-08-29 14:32 | DS ---
Physical Examination Vital Signs: Vital Signs Temperature 98.5 F 08/29/17 09:00 Pulse Rate 68 08/29/17 09:00 Respiratory Rate 18 08/29/17 09:00 Blood Pressure 159/77 08/29/17 09:00 O2 Sat by Pulse Oximetry (%) 98 08/29/17 09:00 Labs: CBC, BMP 08/29/17 06:00 08/29/17 06:00 Discharge Summary Reason For Visit: ELEVATED TROPONIN LEVELS Condition: Stable - Instructions Diet, Activity, Other Instructions: You are being transferred to [facility] for a cardiac catheterization. Please follow their discharge instructions once they discharge you. Referrals: Alex Gay MD [Staff Physician] - Disposition: TRANSFER ACUTE CARE/OTHER HOSP - Home Medications Comprehensive Discharge Medication List: Ambulatory Orders Insulin Glargine,Hum.rec.anlog [Lantus Solostar PEN -] 50 units SQ DAILY Aspirin Coated [Ecotrin -] 81 mg PO DAILY tablet.ec 08/29/17 Atorvastatin Ca [Lipitor] 80 mg PO HS tablet 08/29/17 Clopidogrel Bisulfate [Plavix -] 75 mg PO DAILY tablet 08/29/17 Heparin - 1,000 unit IVPUSH PRN PRN vial 08/29/17 Heparin - 5,000 unit IVPUSH PRN PRN vial 08/29/17 Insulin Sliding Scale [Novolog Vial Sliding Scale -] 1 vial SQ ACHS units 08/29 Lisinopril [Prinivil] 2.5 mg PO DAILY tablet 08/29/17 Metoprolol Tartrate [Lopressor -] 25 mg PO BID tablet 08/29/17
== END 2017-08-29 14:14 | disposition short-term general hospital (02) | DRG 282 ==
LOC: JER 12:36 → JERBED 16:28 → J4W 18:29
PROVIDERS: ADMIT Internal Medicine; ATTEND Registered Nurse
DX: I21.4 Non-ST elevation (NSTEMI) myocardial infarction (principal); E11.9 Type 2 diabetes mellitus without complications; I10 Essential (primary) hypertension; F41.8 Other specified anxiety disorders; E78.5 Hyperlipidemia, unspecified
CPT/HCPCS: 36415; 70450-TC; 71045-TC-FY; 71275-TC; 80053; 80061; 82550; 82553; 82947; 82962; 83036; 83721; 83735; 84443; 84484; 85025; 85610; 93005; 93010; 93306-TC; 99284-25; J1644; J7030

== ENCOUNTER 2017-09-22 20:33 | Emergency (ER) | payer OTHER ==
[2017-09-22 20:49] VITALS: BP 168/76; PULSE 75; TEMP 98.8; BMI 26.6
--- NOTE | 2017-09-22 21:36 | PDOC ---
History of Present Illness - General Chief Complaint: Blood Sugar Problem Stated Complaint: Hypoglycemia Time Seen by Provider: 09/22/17 20:48 - History of Present Illness Initial Comments: 09/22/17 21:47 72 yo F w a hx of AR august 30, HTN, HCL, T2DM is here bc she felt very weak earlier today, was diaphoretic, and lightheaded. She was working hard outside in the garden and thinks she forgot to eat and drink appropriately then started experiencing hypoglycemic symptoms. She ate some food, and had some orange juice and now feels much better here in the ER and would like to get out of here. She denies any chest pain or SOB. She denies any recent fevers or infections. She did not fall down today. 09/22/17 22:05 09/22/17 22:41 Past History - Past Medical History Allergies/Adverse Reactions: Allergies Allergy/AdvReac Type Severity Reaction Status Date / Time No Known Allergies Allergy Verified 09/22/17 20:49 Home Medications: Ambulatory Orders Insulin Glargine,Hum.rec.anlog [Lantus Solostar PEN -] 50 units SQ DAILY Aspirin Coated [Ecotrin -] 81 mg PO DAILY tablet.ec 08/29/17 Atorvastatin Ca [Lipitor] 80 mg PO HS tablet 08/29/17 Clopidogrel Bisulfate [Plavix -] 75 mg PO DAILY tablet 08/29/17 Heparin - 1,000 unit IVPUSH PRN PRN vial 08/29/17 Heparin - 5,000 unit IVPUSH PRN PRN vial 08/29/17 Insulin Sliding Scale [Novolog Vial Sliding Scale -] 1 vial SQ ACHS units 08/29 Lisinopril [Prinivil] 2.5 mg PO DAILY tablet 08/29/17 Metoprolol Tartrate [Lopressor -] 25 mg PO BID tablet 08/29/17 Sulfamethoxazole/Trimethoprim [Bactrim Ds -] 1 tab PO BID #14 tablet 09/22/17 Anemia: No Asthma: No Cancer: No Cardiac Disorders: No CVA: No COPD: No DVT: No Dementia: No Diabetes: Yes GI Disorders: No Disorders: No HTN: No Hypercholesterolemia: Yes Liver Disease: No Seizures: No Thyroid Disease: No - Surgical History Abdominal Surgery: No Appendectomy: No Cardiac Surgery: No Cholecystectomy: No Lung Surgery: No Neurologic Surgery: No Orthopedic Surgery: No - Immunization History Immunization Up to Date: Yes - Suicide/Smoking/Psychosocial Hx Smoking Status: No Smoking History: Never smoked Have you smoked in the past 12 months: No Number of Cigarettes Smoked Daily: 0 Information on smoking cessation initiated: No Hx Alcohol Use: No Drug/Substance Use Hx: No Substance Use Type: None Review of Systems - Review of Systems Comments:: 09/22/17 22:42 GENITOURINARY: Positive: dysuria, frequency, urgency Absent: hesitancy, hematuria, flank pain, genital pain CONSTITUTIONAL: Positive: Diaphoresis, generalized weakness, malaise Absent: fever, chills, loss of appetite HEENT: Absent: rhinorrhea, nasal congestion, throat pain, throat swelling, difficulty swallowing, mouth swelling, ear pain, eye pain, visual Changes CARDIOVASCULAR: Positive: Lightheadedness Absent: chest pain, syncope, palpitations, irregular heart rate, peripheral edema RESPIRATORY: Absent: cough, shortness of breath, dyspnea with exertion, orthopnea, wheezing, stridor, hemoptysis GASTROINTESTINAL: Absent: abdominal pain, abdominal distension, nausea, vomiting, diarrhea, constipation, melena, hematochezia MUSCULOSKELETAL: Absent: myalgia, arthralgia, joint swelling SKIN: Absent: rash, itching, pallor HEMATOLOGIC/IMMUNOLOGIC: Absent: easy bleeding, easy bruising, lymphadenopathy, frequent infections ENDOCRINE: Absent: unexplained weight gain, unexplained weight loss, heat intolerance, cold intolerance NEUROLOGIC: Absent: headache, focal weakness or paresthesias, dizziness, unsteady gait, seizure, mental status changes, bladder or bowel incontinence PSYCHIATRIC: Absent: anxiety, depression, suicidal or homicidal ideation, hallucinations. 09/22/17 23:10 *Physical Exam - Vital Signs Last Vital Signs Temp Pulse Resp BP Pulse Ox 98.8 F 75 19 168/76 98 09/22/17 20:44 09/22/17 20:44 09/22/17 20:44 09/22/17 20:44 09/22/17 20:44 - Physical Exam Comments: 09/22/17 22:44 GENERAL: Well developed, well nourished. Awake and alert. No acute distress. HEENT: Normocephalic, atraumatic. PERRLA, EOMI. No conjunctival pallor. Sclera are non- icteric. Moist mucous membranes. Oropharynx is clear. NECK: Supple. Full ROM. No JVD. Carotid pulses 2+ and symmetric, without bruits. No thyromegaly. No lymphadenopathy. CARDIOVASCULAR: Regular rate and rhythm. No murmurs, rubs, or gallops. Distal pulses are 2+ and symmetric. PULMONARY: No evidence of respiratory distress. Lungs clear to auscultation bilaterally. No wheezing, rales or rhonchi. ABDOMINAL: Soft. Non-tender. Non-distended. No rebound or guarding. No organomegaly. Normoactive bowel sounds. MUSCULOSKELETAL Normal range of motion at all joints. No bony deformities or tenderness. No CVA tenderness. EXTREMITIES: No cyanosis. No clubbing. No edema. No calf tenderness. SKIN: Warm and dry. Normal capillary refill. No rashes. No jaundice. NEUROLOGICAL: Alert, awake, appropriate. Cranial nerves 2-12 intact. No deficits to light touch and temperature in face, upper extremities and lower extremities. No motor deficits in the in face, upper extremities and lower extremities. Normoreflexic in the upper and lower extremities. Normal speech. Toes are down-going bilaterally. Gait is normal without ataxia. PSYCHIATRIC: Cooperative. Good eye contact. Appropriate mood and affect. ED Treatment Course - LABORATORY CBC & Chemistry Diagram: 09/22/17 22:10 09/22/17 22:10 Medical Decision Making - Medical Decision Making 09/22/17 22:45 72 yo F w a hx of AR 3 weeks ago, T2DM, HTN, HCL, here after what appears to have been a hypoglycemic episode earlier today. Here in the ER after she ate some food and drank juice she feels better and now her glucose is 168. She endorses having dysuria, frequency and urgency Plan: cbc, cmp, us, cxr, ekg, trop, fluids, re-assess. bloodwork and urine point towards UTI. Pertinent blood labs WBC count - 14.7 Neutrophil% 89 Pertinent Urine labs LE- 2+ WBC - 13 Sugar re-checked before DC - 282. 09/22/17 23:19 *DC/Admit/Observation/Transfer Diagnosis at time of Disposition: UTI (urinary tract infection) - Discharge Dispostion Disposition: HOME Condition at time of disposition: Improved Decision to Admit order: No - Prescriptions Prescriptions: Sulfamethoxazole/Trimethoprim [Bactrim Ds -] 1 tab PO BID #14 tablet - Referrals - Patient Instructions Printed Discharge Instructions: DI for Hyperglycemia -- Adult, Urinary Tract Infection Additional Instructions: You have been diagnosed with a urinary tract infection in the ER. Please goto the [facility] pharmacy to pecan picker the Bactrim we are sending for you. Take 1 pill twice a day - once in the morning and once at night - for the next 7 days. Come back to the Emergency Room if you develop a fever, start feeling very weak , or any other concerning symptoms. Make sure to follow up with your primary care doctor in the next 7-10 days to make sure you are getting better. - Post Discharge Activity
[2017-09-22] MEDS ORDERED: SODIUM CHLORIDE 0.9% 500 ML INFUS.BAG IV ONE (21:40)
[2017-09-22] MEDS ORDERED: METOPROLOL TARTRATE 25 MG TABLET (FP) PO ONE (21:41)
[2017-09-22] MEDS ORDERED: TICAGRELOR 90 MG TABLET PO SCH (21:45)
[2017-09-22] MEDS ORDERED: TICAGRELOR 90 MG TABLET PO ONE (21:54)
[2017-09-22] MEDS ORDERED: METOPROLOL TARTRATE 25 MG TABLET (FP) ONE (21:56)
--- NOTE | 2017-09-22 22:06 | PDOC ---
Attending Attestation - HPI HPI: The patient is a 72 year old female with a PMHx of recent [place] (August 30), HTN, HCL, T2DM, who was BIBA and presents with diaphoresis, lightheadedness, and generalized weakness. The patient states that she was gardening around noon and states that she began sweating and feeling weak in the knees, lightheaded, and her heart began beating really fast. She states that she did not have much to eat or drink and felt very hypoglycemic so she called her cousin. Her cousin states that she found the patient very out of it and gave her orange juice and something to eat. She states that she currently feels a lot better. She denies any chest pain, SOB, fever. Contact Number: [phone] (Usha Ching pt's cousin) 09/22/17 23:13 <Isabel Christensen - Last Filed: 09/22/17 23:13> - Resident Resident Name: John Guerra - ED Attending Attestation I have performed the following: I have examined & evaluated the patient, The case was reviewed & discussed with the resident, I agree w/resident's findings & plan, Exceptions are as noted - Physicial Exam PE: GENERAL: Awake, alert, and fully oriented, in no acute distress HEAD: No signs of trauma EYES: PERRLA, EOMI, sclera anicteric, conjunctiva clear ENT: Auricles normal inspection, hearing grossly normal, nares patent, oropharynx clear without exudates. Moist mucosa NECK: Normal ROM, supple, no lymphadenopathy, JVD, or masses LUNGS: Breath sounds equal, clear to auscultation bilaterally. No wheezes, and no crackles HEART: Regular rate and rhythm, normal S1 and S2, no murmurs, rubs or gallops ABDOMEN: Soft, nontender, normoactive bowel sounds. No guarding, no rebound. No masses EXTREMITIES: Normal range of motion, no edema. No clubbing or cyanosis. No cords, erythema, or tenderness NEUROLOGICAL: Cranial nerves II through XII grossly intact. Normal speech, normal gait SKIN: Warm, Dry, normal turgor, no rashes or lesions noted. <Chloe Robles - Last Filed: 09/23/17 01:29>
[2017-09-22 22:18] LABS: BASO % 0.8 % (0-2.0); EOS % 0.6 % (0-4.5); HEMATOCRIT 39.9 % (32.4-45.2); HEMOGLOBIN 13.1 GM/dL (10.7-15.3); LYMPH % 4.9 % (8-40); MCH 26.8 pg (25.7-33.7); MCHC 32.8 g/dl (32.0-36.0); MEAN CELL VOLUME 81.6 fl (80-96); MEAN PLT VOLUME 8.4 fl (7.5-11.1); MONO % 4.6 % (3.8-10.2); NEUT % 89.1 % (42.8-82.8); PLATELET COUNT 237 K/MM3 (134-434); RBC 4.89 M/mm3 (3.60-5.2); RDW 13.5 % (11.6-15.6); WHITE BLOOD COUNT 14.7 K/mm3 (4.0-10.0)
[2017-09-22 22:40] LABS: ALBUMIN 3.8 g/dl (3.4-5.0); ANION GAP 7 (8-16); BILIRUBIN,TOTAL 0.2 mg/dL (0.2-1.0); BLOOD UREA NITROGEN 25 mg/dL (7-18); CHLORIDE 105 mmol/L (98-107); CO2 29 mmol/L (21-32); CREATININE 0.9 mg/dL (0.55-1.02); GLUCOSE,RANDOM 168 mg/dL (74-106); POTASSIUM 4.6 mmol/L (3.5-5.1); SGOT/AST 16 U/L (15-37); SGPT/ALT 40 U/L (12-78); SODIUM 141 mmol/L (136-145); TOT PROT 6.9 g/dl (6.4-8.2)
[2017-09-22 22:41] LABS: ALK PHOS 200 U/L (45-117)
[2017-09-22 22:44] LABS: URINE APPEARANCE CLEAR; URINE BILIRUBIN NEGATIVE (<2.0 mg/dL); URINE COLOR YELLOW; URINE GLUCOSE (UA) 2+ (NEGATIVE); URINE KETONE NEGATIVE (NEGATIVE); URINE NITRITE NEGATIVE (NEGATIVE); URINE UROBILINOGEN NEGATIVE mg/dL (0.2-1.0)
[2017-09-22 22:53] LABS: URINE LEUK ESTERASE 2+ (NEGATIVE); URINE PROTEIN 1+ (NEGATIVE)
[2017-09-22 22:55] LABS: EPI CELLS RARE /HPF (FEW); URINE HYALINE CAST 1 /lpf; URINE MUCUS RARE
[2017-09-22] MEDS ORDERED: SULFAMETHOXAZOLE/TRIMETHOPRIM 800MG/160MG D.S. TABLET PO ONE (23:07)
[2017-09-22] MEDS ORDERED: SULFAMETHOXAZOLE/TRIMETHOPRIM 800MG/160MG D.S. TABLET ONE (23:12)
== END 2017-09-22 23:38 | disposition home or self-care (01) ==
LOC: JER 20:33
DX: E11.649 Type 2 diabetes mellitus with hypoglycemia without coma (principal); Z79.4 Long term (current) use of insulin; N39.0 Urinary tract infection, site not specified; I21.9 Acute myocardial infarction, unspecified; I10 Essential (primary) hypertension; E78.00 Pure hypercholesterolemia, unspecified
CPT/HCPCS: 36415; 71046-TC-FY; 80053; 81003; 81015; 82550; 82962; 84484; 85025; 99282-25

== ENCOUNTER 2018-05-10 18:45 | Inpatient (IN) | payer OTHER ==
[2018-05-11 02:03] LABS: ACETONE SERUM NEGATIVE (NEGATIVE)
[2018-05-11 02:12] LABS: ALBUMIN 2.5 g/dl (3.4-5.0); ALK PHOS 167 U/L (45-117); ANION GAP 10 MMOL/L (8-16); BILIRUBIN,TOTAL 0.5 mg/dL (0.2-1); BLOOD UREA NITROGEN 22 mg/dL (7-18); CALCIUM 8.1 mg/dL (8.5-10.1); CHLORIDE 100 mmol/L (98-107); CO2 23 mmol/L (21-32); CREATININE 1.2 mg/dL (0.55-1.3); GLUCOSE,RANDOM 172 mg/dL (74-106); MAGNESIUM 2.3 mg/dL (1.8-2.4); SGOT/AST 76 U/L (15-37); SGPT/ALT 48 U/L (13-61); SODIUM 133 mmol/L (136-145); TOT PROT 6.6 g/dl (6.4-8.2)
[2018-05-11] MEDS ORDERED: AZITHROMYCIN IVPB 500 MG/250 ML BAG IVPB ONE (04:03)
[2018-05-11] MEDS ORDERED: CEFTRIAXONE 1 GM/50 ML BAG ONE (04:03)
--- NOTE | 2018-05-11 05:27 | PDOC ---
History of Present Illness - General Chief Complaint: Cold Symptoms Stated Complaint: fever/cough/headaches Time Seen by Provider: 05/10/18 23:33 Past History - Past Medical History Allergies/Adverse Reactions: Allergies Allergy/AdvReac Type Severity Reaction Status Date / Time No Known Allergies Allergy Verified 05/11/18 04:43 Home Medications: Ambulatory Orders Insulin Glargine,Hum.rec.anlog [Lantus Solostar PEN -] 40 units SQ DAILY Aspirin Coated [Ecotrin -] 81 mg PO DAILY tablet.ec 08/29/17 Atorvastatin Ca [Lipitor] 80 mg PO HS tablet 08/29/17 Lisinopril [Prinivil] 2.5 mg PO DAILY tablet 08/29/17 Metoprolol Tartrate [Lopressor -] 25 mg PO BID tablet 08/29/17 Metformin HCl [Glucophage] 500 mg PO BID 05/11/18 Anemia: No Asthma: No Cancer: No Cardiac Disorders: No CVA: No COPD: No DVT: No Dementia: No Diabetes: Yes GI Disorders: No Disorders: No HTN: No Hypercholesterolemia: Yes Liver Disease: No Seizures: No Thyroid Disease: No - Surgical History Abdominal Surgery: No Appendectomy: No Cardiac Surgery: No Cholecystectomy: No Lung Surgery: No Neurologic Surgery: No Orthopedic Surgery: No - Immunization History Immunization Up to Date: Yes - Suicide/Smoking/Psychosocial Hx Smoking Status: No Smoking History: Never smoked Have you smoked in the past 12 months: No Number of Cigarettes Smoked Daily: 0 Information on smoking cessation initiated: No Hx Alcohol Use: No Drug/Substance Use Hx: No Substance Use Type: None *Physical Exam - Vital Signs Last Vital Signs Temp Pulse Resp BP Pulse Ox 101.5 F H 100 H 18 142/42 L 95 05/10/18 19:30 05/10/18 19:30 05/10/18 19:30 05/10/18 19:30 05/10/18 19:30 Moderate Sedation - Procedure Monitoring Vital Signs: Procedure Monitoring Vital Signs Temperature 101.5 F H 05/10/18 19:30 Pulse Rate 100 H 05/10/18 19:30 Respiratory Rate 18 05/10/18 19:30 Blood Pressure 142/42 L 05/10/18 19:30 O2 Sat by Pulse Oximetry (%) 95 05/10/18 19:30 ED Treatment Course - LABORATORY CBC & Chemistry Diagram: 05/11/18 01:48 05/11/18 01:48 - ADDITIONAL ORDERS Additional order review: Laboratory Results 05/11/18 05/11/18 01:48 01:48 Sodium 133 L Potassium 4.0 Chloride 100 Carbon Dioxide 23 Anion Gap 10 BUN 22 H Creatinine 1.2 Creat Clearance w eGFR 44.04 Random Glucose 172 H Lactic Acid 1.7 Calcium 8.1 L Magnesium 2.3 Total Bilirubin 0.5 AST 76 H ALT 48 Alkaline Phosphatase 167 H Creatine Kinase 86 Troponin I < 0.02 Total Protein 6.6 Albumin 2.5 L Acetone, Qual Negative L Medical Decision Making - Medical Decision Making 05/11/18 05:26 Patient on downtime charting. See paper chart for details *DC/Admit/Observation/Transfer Diagnosis at time of Disposition: Pneumonia Qualifiers: Pneumonia type: due to unspecified organism Laterality: right Lung location: upper lobe of lung Qualified Code(s): J18.1 - Lobar pneumonia, unspecified organism - Discharge Dispostion Condition at time of disposition: Fair Decision to Admit order: Yes - Referrals - Patient Instructions - Post Discharge Activity
[2018-05-11 05:31] LABS: URINE APPEARANCE CLOUDY; URINE BILIRUBIN NEGATIVE (<2.0 mg/dL); URINE COLOR AMBER; URINE GLUCOSE (UA) 3+ (NEGATIVE); URINE KETONE NEGATIVE (NEGATIVE); URINE LEUK ESTERASE NEGATIVE (NEGATIVE); URINE NITRITE NEGATIVE (NEGATIVE); URINE PROTEIN 3+ (NEGATIVE); URINE UROBILINOGEN 4.0 E.U/dl mg/dL (0.2-1.0)
[2018-05-11] MEDS ORDERED: ACETAMINOPHEN 325 MG TABLET (FP) ONE (05:34)
[2018-05-11 05:36] LABS: EPI CELLS RARE /HPF (FEW); URINE BACTERIA RARE /hpf (NONE SEEN); URINE MUCUS FEW; YEAST RARE
--- NOTE | 2018-05-11 05:44 | PN ---
Teaching Attending Note Name of Resident: Johnnie Varela ATTENDING PHYSICIAN STATEMENT I saw and evaluated the patient. I reviewed the resident's note and discussed the case with the resident. I agree with the resident's findings and plan as documented. SUBJECTIVE: Seen and examined; please refer to resident note for further historical information. Kin this is a 72 y/o female presenting to the ER with a CC of 3 days SOB, cough. Temperature is elevated in the ER. Cough is productive. Hasn't seen any other providers recently; nothing makes it better or worse. 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 On brilinta for the CAD (recently stented over summer) 10 sys ROS done and negative aside from HPI PMH (CAD s/p PCIx4, HLD, NIDDM, HTN, HLD) , PSH, Family hx, Social hx reviewed Medication list reviewed; reconciliation pending OBJECTIVE: VS, labs, imaging reviewed NAD, AAO, resting comfortably in bed NC AT EOMI PERRLA RRR s1/2 no mgr Lungs with R-sided rales but moving air well, w/ sym exp NT ND +BS CN2-12 wnl, no fnd Normal mood, appropriate behavior ASSESSMENT AND PLAN: Patient presents to the ER with cough and some SOB found to have a RUL CAP; placing on med-surg. 1) CAP with effusion -CURB-62 is 2; improved symptomatically; was SIRS+ on arrival. Treating for CAP with iv abx (ceft and azithro) and will monitor for sx. Oxygenating well and not requiring NC, etc. Followup blood and sputum cultures, followup viral PCR/legionella Ag. Negative PNA. 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 Followup size of effusion on the official CT read to see if any further steps need taken. 2) CAD s/p PCI -Continue home meds; no cardiopulmonary sx at this point. Would be helpful to obtain recent stress test from her CV. 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 Repeat BMP. Not severe and asx. Check serum/urine osm and urine na if worsens. Full Code
[2018-05-11] MEDS ORDERED: LACTATED RINGERS SOLUTION 1,000 ML IV SCH (06:15)
--- NOTE | 2018-05-11 06:31 | HP ---
CHIEF COMPLAINT: Cough, pleuritic pain, fever, SOB PCP: CARDIOLOGY: Dr. Cunningham HISTORY OF PRESENT ILLNESS: Patient is a 72 y/o F w/ PMHx CAD x 4 stents last summer to fall ( catheterization at [facility], Pt unaware of whether/type of MS suffered), HTN, HLD, NIDDM, p/w fever, painful non-productive cough, pleuritic pain, SOB, generalized weakness x 3 days. No known sick contacts, no recent hospitalizations. On presentation temp 101.5, HR 100, BP 142/42. Additionally w / relative SHADIA (Cr 1.2, baseline is 0.8 to 0.9). WBC unknown d/t EMR malfunction but per sign out from PA, mild leukocytosis to ~11.5. Troponin negative. CXR showed RUL consolidation. Chest CT showed RUL consolidation w/ pleural effusion. Started on IV hydration, Ceftriaxone, Azithromycin. ER course was notable for: (1) T 101.5, tachy to 100, BP 142/42 (2) Cr. 1.2 baseline 0.9 (3) CURB-65 2 Recent Travel: none PAST MEDICAL HISTORY: As per HPI PAST SURGICAL HISTORY: none Social History: Smoking: No Alcohol: No Drugs: No Family History: Allergies No Known Allergies Allergy (Verified 05/11/18 04:43) HOME MEDICATIONS: Home Medications Medication Instructions Recorded Insulin Glargine,Hum.rec.anlog 40 units SQ DAILY 07/01/12 [Lantus Solostar PEN -] Aspirin Coated [Ecotrin -] 81 mg PO DAILY tablet.ec 08/29/17 Atorvastatin Ca [Lipitor] 80 mg PO HS tablet 08/29/17 Lisinopril [Prinivil] 2.5 mg PO DAILY tablet 08/29/17 Metoprolol Tartrate [Lopressor -] 25 mg PO BID tablet 08/29/17 Metformin HCl [Glucophage] 500 mg PO BID 05/11/18 REVIEW OF SYSTEMS As per HPI PHYSICAL EXAMINATION Vital Signs - 24 hr 05/10/18 05/11/18 19:30 05:32 Temperature 101.5 F H 100.6 F H Pulse Rate 100 H Pulse Rate [ 88 Left Radial] Respiratory 18 19 Rate Blood Pressure 142/42 L Blood Pressure 130/65 [Right Arm] O2 Sat by Pulse 95 99 Oximetry (%) GENERAL: A&Ox3, NAD HEAD: NC/AT EYES: PERRLA, EOMI, anicteric EARS, NOSE, THROAT: Ears normal, nares patent, oropharynx clear without exudates. Moist mucous membranes. NECK: Normal range of motion, supple without lymphadenopathy, JVD, or masses. LUNGS: Diminished breath sounds on right HEART: RRR no m/r/g ABDOMEN: +bs, soft, NT, ND MUSCULOSKELETAL: Normal range of motion at all joints. No bony deformities or tenderness. No CVA tenderness. UPPER EXTREMITIES: 2+ pulses, warm, well-perfused. No cyanosis. No clubbing. No peripheral edema. LOWER EXTREMITIES: 2+ pulses, warm, well-perfused. No calf tenderness. No peripheral edema. 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 Good eye contact. Appropriate mood and affect. SKIN: Warm, dry, normal turgor, no rashes or lesions noted, normal capillary refill. Laboratory Results - last 24 hr 05/10/18 05/11/18 05/11/18 21:00 01:48 01:48 Sodium 133 L Potassium 4.0 Chloride 100 Carbon Dioxide 23 Anion Gap 10 BUN 22 H Creatinine 1.2 Creat Clearance w eGFR 44.04 Random Glucose 172 H Lactic Acid Calcium 8.1 L Magnesium 2.3 Total Bilirubin 0.5 AST 76 H ALT 48 Alkaline Phosphatase 167 H Creatine Kinase 86 Troponin I < 0.02 Total Protein 6.6 Albumin 2.5 L Urine Color Shannan Urine Appearance Cloudy Urine pH 5.0 Ur Specific [place] 1.029 Urine Protein 3+ H D Urine Glucose (UA) 3+ H Urine Ketones Negative Urine Blood Negative Urine Nitrite Negative Urine Bilirubin Negative Urine Urobilinogen 4.0 e.u/dl H Ur Leukocyte Esterase Negative Urine WBC (Auto) 5 Urine RBC (Auto) 2 Ur Epithelial Cells Rare Urine Bacteria Rare Urine Mucus Few Urine Yeast Rare Acetone, Qual Negative L Influenza A (Rapid) Negative Influenza B (Rapid) Negative 05/11/18 01:48 Sodium Potassium Chloride Carbon Dioxide Anion Gap BUN Creatinine Creat Clearance w eGFR Random Glucose Lactic Acid 1.7 Calcium Magnesium Total Bilirubin AST ALT Alkaline Phosphatase Creatine Kinase Troponin I Total Protein Albumin Urine Color Urine Appearance Urine pH Ur Specific [place] Urine Protein Urine Glucose (UA) Urine Ketones Urine Blood Urine Nitrite Urine Bilirubin Urine Urobilinogen Ur Leukocyte Esterase Urine WBC (Auto) Urine RBC (Auto) Ur Epithelial Cells Urine Bacteria Urine Mucus Urine Yeast Acetone, Qual Influenza A (Rapid) Influenza B (Rapid) ASSESSMENT/PLAN: 72 y/o F w/ PMHx CAD x 4 stents, HTN, HLD, NIDDM, p/w fever, painful non- productive cough, pleuritic pain, SOB, generalized weakness x 3 days. Imaging showing RUL consolidation w/ effusion. Admitted for CAP. #CAP -CURB-65 2 (age and low diastolic BP) -CXR, chest CT showing RUL consolidation and effusion -febrile to 101.5 -tachycardia resolved at time of encounter -cont Ceftriaxone/Azithromycin -LR @ 60 cc/hr #CV -Guest Services Manager is Dr. 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 - New Patient This patient is new to me today: Yes Date on this admission: 05/11/18 - Critical Care Critical Care patient: No
[2018-05-11] MEDS ORDERED: INSULIN REGULAR HUMAN 100 UNITS/ML *VIAL ONE (06:58)
[2018-05-11] MEDS ORDERED: HEPARIN NA (PORCINE) 5,000 UNITS/ML 1ML VIAL ONE (06:58)
[2018-05-11] MEDS: HEPARIN NA (PORCINE) 5,000 UNITS/ML 1ML VIAL SQ SCH ×4 (07:05→22:33)
[2018-05-11] MEDS: INSULIN SLIDING SCALE (NOVOLOG) 1 VIAL SQ SCH ×4 (07:05→22:35)
[2018-05-11 07:27] LABS: BASO % 0.3 % (0-2.0); EOS % 0.1 % (0-4.5); HEMOGLOBIN 10.3 GM/dL (10.7-15.3); LYMPH % 7.4 % (8-40); MCHC 34.3 g/dl (32.0-36.0); MEAN CELL VOLUME 81.7 fl (80-96); MEAN PLT VOLUME 8.4 fl (7.5-11.1); MONO % 9.3 % (3.8-10.2); NEUT % 82.9 % (42.8-82.8); PLATELET COUNT 238 K/MM3 (134-434); RBC 3.67 M/mm3 (3.60-5.2); RDW 13.5 % (11.6-15.6); WHITE BLOOD COUNT 9.3 K/mm3 (4.0-10.0)
--- NOTE | 2018-05-11 07:39 | HOSP ---
Subjective - Review of Symptoms Subjective: c/o not feeling well. continues to have non productive cough. denies Cp, SOB, fever, chills, N/V/C/D rash noted by RN on B/L flanks. states she is not pruritic. Current Medications Generic Name Dose Route Start Last Admin Trade Name Cooperq PRN Reason Stop Dose Admin Aspirin 81 mg 05/11/18 10:00 Ecotrin - PO DAILY ELIZABETH Atorvastatin Calcium 80 mg 05/11/18 22:00 Lipitor - PO HS ELIZABETH Heparin Sodium (Porcine) 5,000 unit 05/11/18 06:30 05/11/18 07:05 Heparin - SQ 5,000 unit TID ELIZABETH Administration Lactated Ringer's 1,000 mls @ 60 mls/hr 05/11/18 06:15 05/11/18 07:04 Lactated Ringers Solution IV 60 mls/hr ASDIR ELIZABETH Administration Azithromycin 500 mg/ Dextrose 250 mls @ 250 mls/hr 05/11/18 10:00 IVPB DAILY ELIZABETH Ceftriaxone Sodium 1 gm/ 100 mls @ 200 mls/hr 05/11/18 10:00 Dextrose IVPB DAILY [facility] Protocol Insulin Aspart 1 vial 05/11/18 07:00 05/11/18 07:05 Novolog Vial Sliding Scale - SQ 8 unit ACHS ELIZABETH Administration Protocol Lisinopril 2.5 mg 05/11/18 10:00 Prinivil PO DAILY [facility] Metoprolol Tartrate 25 mg 05/11/18 10:00 Lopressor - PO BID ELIZABTEH Ticagrelor 90 mg 05/11/18 10:00 Brilinta PO DAILY [facility] Last Vital Signs Temp Pulse Resp BP Pulse Ox 100.6 F H 88 19 130/65 99 05/11/18 05:32 05/11/18 05:32 05/11/18 05:32 05/11/18 05:32 05/11/18 05:32 General lethargic CV S1 S2 RRR no murmur/rub/gallop Lungs decreased breath sounds B/L bases, no wheezing abdomen soft NT/ND Extremities no pedal edema Skin B/L flank macular papular rash CBCD WBC 9.3 K/mm3 (4.0-10.0) 05/11/18 06:54 RBC 3.67 M/mm3 (3.60-5.2) 05/11/18 06:54 Hgb 10.3 GM/dL (10.7-15.3) L 05/11/18 06:54 Hct 30.0 % (32.4-45.2) L 05/11/18 06:54 MCV 81.7 fl (80-96) 05/11/18 06:54 MCHC 34.3 g/dl (32.0-36.0) 05/11/18 06:54 RDW 13.5 % (11.6-15.6) 05/11/18 06:54 Plt Count 238 K/MM3 (134-434) 05/11/18 06:54 MPV 8.4 fl (7.5-11.1) 05/11/18 06:54 CMP Sodium 133 mmol/L (136-145) L 05/11/18 06:54 Potassium 4.1 mmol/L (3.5-5.1) 05/11/18 06:54 Chloride 102 mmol/L (98-107) 05/11/18 06:54 Carbon Dioxide 23 mmol/L (21-32) 05/11/18 06:54 Anion Gap 8 MMOL/L (8-16) 05/11/18 06:54 BUN 21 mg/dL (7-18) H 05/11/18 06:54 Creatinine 1.0 mg/dL (0.55-1.3) 05/11/18 06:54 Creat Clearance w eGFR 54.35 (>60) 05/11/18 06:54 Random Glucose 320 mg/dL (74-106) H* 05/11/18 06:54 Calcium 7.1 mg/dL (8.5-10.1) L 05/11/18 06:54 Total Bilirubin 0.5 mg/dL (0.2-1) 05/11/18 01:48 AST 76 U/L (15-37) H 05/11/18 01:48 ALT 48 U/L (13-61) 05/11/18 01:48 Alkaline Phosphatase 167 U/L (45-117) H 05/11/18 01:48 Total Protein 6.6 g/dl (6.4-8.2) 05/11/18 01:48 Albumin 2.5 g/dl (3.4-5.0) L 05/11/18 01:48 CARDIAC ENZYMES Creatine Kinase 86 U/L (26-192) 05/11/18 01:48 Troponin I < 0.02 ng/ml (0.00-0.05) 05/11/18 01:48 A/P 72yo F wtih PMH CAD, DM, HTN and dyslipidemia presented to the ER with SOB and cough x3 days and found to be septic with RUL PNA. also noted to have diffuse rash 1. Sepsis due to RUL PNA- Tm 101.5 with tachycardia. will switch azithro and ceftriaxone to Levaquin 500mg. check urine legionella. can d/c IVF since improving and some mild effusions seen on CT. F/u Cx. Flu swab negative 2. Rash- could be drug reaction however pt is unsure if she had it prior to arrival. will hold azithro/ceftriaxone at this time and monitor for improvement 3. Pulmonary nodule- 4.5mm. could be reactive. will need repeat CT scan in 3 months 4. hypophosphatemia- neutraphos 5. SHADIA- due to sepsis. trend Cr. avoid nephrotoxic agents 6. DM- did not receive levemir yesterday. will re-start. iss and BGM. hold metformin 7. CAD- on brilinta/asa/statin/betablocker 8. HTN- controlled. cont home regimen 9. DVT ppx- hep sq Physical Examination Vital Signs: Vital Signs Temperature 100.6 F H 05/11/18 05:32 Pulse Rate 88 05/11/18 05:32 Respiratory Rate 19 05/11/18 05:32 Blood Pressure 130/65 05/11/18 05:32 O2 Sat by Pulse Oximetry (%) 99 05/11/18 05:32
[2018-05-11 08:11] LABS: ANION GAP 8 MMOL/L (8-16); BLOOD UREA NITROGEN 21 mg/dL (7-18); CALCIUM 7.1 mg/dL (8.5-10.1); CHLORIDE 102 mmol/L (98-107); CO2 23 mmol/L (21-32); MAGNESIUM 2.1 mg/dL (1.8-2.4); PHOSPHOROUS 2.3 mg/dL (2.5-4.9); POTASSIUM 4.1 mmol/L (3.5-5.1); SODIUM 133 mmol/L (136-145)
[2018-05-11 09:10] LABS: BASO % 0.3 % (0-2.0); EOS % 0.2 % (0-4.5); HEMATOCRIT 34.6 % (32.4-45.2); HEMOGLOBIN 11.7 GM/dL (10.7-15.3); LYMPH % 6.5 % (8-40); MCH 27.6 pg (25.7-33.7); MCHC 33.9 g/dl (32.0-36.0); MEAN CELL VOLUME 81.3 fl (80-96); MEAN PLT VOLUME 8.6 fl (7.5-11.1); MONO % 7.8 % (3.8-10.2); NEUT % 85.2 % (42.8-82.8); PLATELET COUNT 275 K/MM3 (134-434); RBC 4.25 M/mm3 (3.60-5.2); RDW 13.5 % (11.6-15.6); WHITE BLOOD COUNT 11.2 K/mm3 (4.0-10.0)
[2018-05-11] MEDS ORDERED: AZITHROMYCIN IVPB 500 MG/250 ML BAG IVPB SCH (10:00)
[2018-05-11] MEDS ORDERED: CEFTRIAXONE 1 GM in DEXTROSE 5%-WATER - 50 ML IVPB SCH (10:00)
[2018-05-11] MEDS ORDERED: TICAGRELOR 90 MG TABLET PO SCH (10:00)
[2018-05-11] MEDS: LISINOPRIL 5 MG TABLET (FP) PO SCH (10:16)
[2018-05-11] MEDS: ASPIRIN COATED 81 MG TABLET.EC PO SCH (10:17)
[2018-05-11] MEDS: METOPROLOL TARTRATE 25 MG TABLET (FP) PO SCH ×2 (10:17→22:33)
[2018-05-11] MEDS ORDERED: NAPH,MB-DB/K PH,MBDB POWDER PACKET PO ONE (10:19)
[2018-05-11] MEDS ORDERED: INSULIN (NOVOLOG) ASPART 100 UNITS/ML 10ML VIAL ONE (12:07)
[2018-05-11] MEDS ORDERED: PNEUMOC 13-VAL CONJ-DIP CRM/PF 0.5 ML DISP.SYRIN IM ONE (12:14)
[2018-05-11 13:13] VITALS: BMI 28.5
[2018-05-11 13:20] LABS: GLUCOSE,RANDOM 320 mg/dL (74-106)
[2018-05-11] MEDS: guaiFENesin/D-M SUGAR-FREE/ACLHOL-FREE 118 ML BOTTLE PO PRN ×2 (18:09→22:34)
[2018-05-11] MEDS: ATORVASTATIN CA 80 MG TABLET (FP) PO SCH (22:33)
[2018-05-11] MEDS: INSULIN (LEVEMIR) 100 UNITS/ML UNITS SQ SCH (22:33)
[2018-05-11] MEDS ORDERED: TICAGRELOR 90 MG TABLET PO ONE (22:45)
[2018-05-12] MEDS: HEPARIN NA (PORCINE) 5,000 UNITS/ML 1ML VIAL SQ SCH ×3 (06:14→21:31)
[2018-05-12] MEDS: INSULIN SLIDING SCALE (NOVOLOG) 1 VIAL SQ SCH ×4 (06:15→21:31)
[2018-05-12 08:29] LABS: BASO % 0.6 % (0-2.0); HEMATOCRIT 30.1 % (32.4-45.2); HEMOGLOBIN 10.4 GM/dL (10.7-15.3); LYMPH % 8.6 % (8-40); MCH 27.7 pg (25.7-33.7); MCHC 34.4 g/dl (32.0-36.0); MEAN CELL VOLUME 80.5 fl (80-96); MONO % 11.4 % (3.8-10.2); NEUT % 76.4 % (42.8-82.8); PLATELET COUNT 278 K/MM3 (134-434); RBC 3.74 M/mm3 (3.60-5.2); RDW 13.7 % (11.6-15.6); WHITE BLOOD COUNT 7.2 K/mm3 (4.0-10.0)
[2018-05-12 08:54] LABS: ANION GAP 5 MMOL/L (8-16); BLOOD UREA NITROGEN 15 mg/dL (7-18); CALCIUM 7.8 mg/dL (8.5-10.1); CHLORIDE 106 mmol/L (98-107); CO2 26 mmol/L (21-32); CREATININE 0.8 mg/dL (0.55-1.3); GLUCOSE,RANDOM 74 mg/dL (74-106); PHOSPHOROUS 2.8 mg/dL (2.5-4.9); POTASSIUM 3.9 mmol/L (3.5-5.1); SODIUM 137 mmol/L (136-145)
--- NOTE | 2018-05-12 09:16 | PN ---
Physical Exam: SUBJECTIVE: Pt feels slightly improved today. Reports not acute events last night without any fevers. Pt's breathing has improved and pt reports her rash has markedly improved. Pt's cough remains rather unchanged however. OBJECTIVE: Vital Signs Period Temp Pulse Resp BP Sys/Crum Pulse Ox Last 24 Hr 98.8 F-100.0 F 81-98 18-20 118-153/52-73 95 GENERAL: NAD, awake, alert, and fully oriented HEENT: NC/AT, SANDRA, MMM, no posterior oropharynx erythema noted LUNGS: Decreased breath sounds in bases bilaterally, minimal rhonchorous sounds appreciated R>L anterior, no wheezes, no accessory muscle use. HEART: RRR, S1, S2 without murmur ABDOMEN: Soft, NT/ND, blanching maculopapular rash noted on R flank noted, normoactive bowel sounds, no guarding EXTREMITIES: 2+ DP pulses, warm, well-perfused, no edema. NEUROLOGICAL: Nonfocal exam. Moving all four extremities, gait not observed PSYCH: Normal mood, normal affect. SKIN: Warm, dry, no rashes or lesions noted Laboratory Results 05/12/18 05/12/18 05/12/18 06:11 08:00 08:00 WBC 7.2 RBC 3.74 Hgb 10.4 L Hct 30.1 L MCV 80.5 MCH 27.7 MCHC 34.4 RDW 13.7 Plt Count 278 MPV 8.0 Absolute Neuts (auto) 5.5 Neutrophils % 76.4 Lymphocytes % 8.6 Monocytes % 11.4 H Eosinophils % 3.0 D Basophils % 0.6 Nucleated RBC % 0 Sodium 137 Potassium 3.9 Chloride 106 Carbon Dioxide 26 Anion Gap 5 L BUN 15 Creatinine 0.8 Creat Clearance w eGFR > 60 POC Glucometer 74 Random Glucose 74 Calcium 7.8 L Phosphorus 2.8 Active Medications Generic Name Dose Route Start Last Admin Trade Name Freq PRN Reason Stop Dose Admin Aspirin 81 mg 05/11/18 10:00 05/11/18 10:17 Ecotrin - PO 81 mg DAILY ELIZABETH Administration Atorvastatin Calcium 80 mg 05/11/18 22:00 05/11/18 22:33 Lipitor - PO 80 mg HS ELIZABETH Administration Guaifenesin 10 ml 05/11/18 13:23 05/11/18 22:34 Diabetic Tussin Dm - PO 10 ml Q4H PRN Administration COUGH Heparin Sodium (Porcine) 5,000 unit 05/11/18 06:30 05/12/18 06:14 Heparin - SQ Not Given TID ELIZABETH Levofloxacin 500 mg in 100 mls @ 100 mls/hr 05/11/18 12:15 05/11/18 12:21 Levaquin 500 Mg Premixed Ivpb - IVPB 100 mls/hr DAILY ELIZABETH Administration Protocol Insulin Aspart 1 vial 05/11/18 07:00 05/12/18 06:15 Novolog Vial Sliding Scale - SQ Not Given ACHS [facility] Protocol Insulin Detemir 40 units 05/11/18 22:00 05/11/18 22:33 Levemir Vial SQ 40 units HS ELIZABETH Administration Lisinopril 2.5 mg 05/11/18 10:00 05/11/18 10:16 Prinivil PO 2.5 mg DAILY ELIZABETH Administration Metoprolol Tartrate 25 mg 05/11/18 10:00 05/11/18 22:33 Lopressor - PO 25 mg BID ELIZABETH Administration Pneumococcal 13-Valent Conj Vacc 0.5 ml 05/11/18 12:14 Prevnar 13 Syringe - IM 05/11/18 12:15 .ONCE ONE Ticagrelor 90 mg 05/11/18 10:00 05/11/18 10:18 Brilinta - PO 90 mg DAILY ELIZABETH Administration ASSESSMENT/PLAN: RUL PNA Allergic dermatitis NIDDM Renal insufficiency (resolved) CAD HTN HLD --Continue Levaquin 500mg IVPB (day 2 of levaquin) for RUL PNA --Continue incentive spirometer encouragement --Due to continued shortness of breath with exertion will check ambulatory oxygen saturation --Continue to monitor rash; likely allergic rxn to previous antibiotics --If pruritus surfaces/continues Benadryl can be given --Continue BGM ACHS --Levemir 40U HS --ISS coverage --Previously hyperglycemic due to receiving medications --Continue Brilinta 90mg BID PO --Continue ASA 81mg qDaily --Continue Lisinopril 2.5mg BID PO --Continue Lopressor 25mg BID PO --Monitor BP; so far stable FEN: Fluids: None indicated currently Electrolyte abnormalities: None Nutrition: Diabetic diet PPX: DVT - Heparin SQ TID GI - Not indicated Dispo: Continue monitoring; potential d/c planning for tomorrow Case discussed with Dr. Priya Montalvo, DO - IM PGY-2 Visit type - Emergency Visit Emergency Visit: Yes ED Registration Date: 05/11/18 Care time: The patient presented to the Emergency Department on the above date and was hospitalized for further evaluation of their emergent condition. - New Patient This patient is new to me today: Yes Date on this admission: 05/12/18 - Critical Care Critical Care patient: No
[2018-05-12] MEDS ORDERED: PT OWN MED DRAWER 7, Y5N ONE ×2 (10:08→19:51)
[2018-05-12] MEDS: LISINOPRIL 5 MG TABLET (FP) PO SCH (10:10)
[2018-05-12] MEDS: ASPIRIN COATED 81 MG TABLET.EC PO SCH (10:10)
[2018-05-12] MEDS: METOPROLOL TARTRATE 25 MG TABLET (FP) PO SCH ×2 (10:10→21:32)
[2018-05-12] MEDS: TICAGRELOR 90 MG TABLET PO SCH ×2 (10:11→21:32)
[2018-05-12] MEDS: guaiFENesin/D-M SUGAR-FREE/ACLHOL-FREE 118 ML BOTTLE PO PRN ×3 (10:14→19:41)
--- NOTE | 2018-05-12 10:24 | PN ---
Teaching Attending Note Name of Resident: Elliot Montalvo ATTENDING PHYSICIAN STATEMENT I saw and evaluated the patient. I reviewed the resident's note and discussed the case with the resident. I agree with the resident's findings and plan as documented. SUBJECTIVE:c/o non productive cough, became dyspnic going to the bathroom. denies CP, fever, chills, N/V/C/D OBJECTIVE: Last Vital Signs Temp Pulse Resp BP Pulse Ox 98.8 F 86 26 H 122/58 L 95 05/12/18 07:00 05/12/18 10:02 05/12/18 10:02 05/12/18 10:02 05/11/18 21:00 General weak appearing CV S1 S2 RRR Lungs decreased bases R>L Skin B/L flank maculopapular rash ASSESSMENT AND PLAN: 72yo F wtih PMH CAD, DM, HTN and dyslipidemia presented to the ER with SOB and cough x3 days and found to be septic with RUL PNA. also noted to have diffuse rash 1. Sepsis due to RUL PNA- afebrile. on levaquin day 3 of total abx. F/u Cx. Flu swab negative 2. Rash- likely drug reaction. states she had azithromycin in the past with no reaction. does not know if she had cephalsporin before. will enter into system as allergy can always do trial of abx in the future separately if necessary 3. Pulmonary nodule- 4.5mm. could be reactive. will need repeat CT scan in 3 months 4. hypophosphatemia- resolved 5. SHADIA- due to sepsis. resolved. avoid nephrotoxic agents 6. DM- improved. cont home dosing of levemir. iss and BGM. hold metformin 7. CAD- on brilinta/asa/statin/betablocker 8. HTN- controlled. cont home regimen 9. DVT ppx- hep sq
--- NOTE | 2018-05-12 11:55 | EKG ---
Test Reason : Blood Pressure : / mmHG Vent. Rate : 095 BPM Atrial Rate : 095 BPM P-R Int : 128 ms QRS Dur : 074 ms QT Int : 370 ms P-R-T Axes : 059 050 095 degrees QTc Int : 464 ms NORMAL SINUS RHYTHM POSSIBLE LEFT ATRIAL ENLARGEMENT BORDERLINE ECG WHEN COMPARED WITH ECG OF 29-AUG-2017 09:16, VENT. RATE HAS INCREASED BY [address] NO LONGER DEPRESSED IN LATERAL LEADS T WAVE AMPLITUDE HAS DECREASED IN INFERIOR LEADS T WAVE INVERSION NO LONGER EVIDENT IN LATERAL LEADS Confirmed by RENÉ HANNA, VAL ([id number]) on 05/12/2018 11:55:13 AM Referred By: Confirmed By:VAL MERRITT MD
[2018-05-12] MEDS: ALBUTEROL SO4 0.083% IH SOL 2.5 MG/3 ML VIAL.NEB. NEB PRN ×2 (16:20→23:22)
[2018-05-12] MEDS ORDERED: INSULIN (NOVOLOG) ASPART 100 UNITS/ML 10ML VIAL ONE (21:30)
[2018-05-12] MEDS: INSULIN (LEVEMIR) 100 UNITS/ML UNITS SQ SCH (21:31)
[2018-05-12] MEDS: ATORVASTATIN CA 80 MG TABLET (FP) PO SCH (21:32)
[2018-05-13] MEDS: INSULIN SLIDING SCALE (NOVOLOG) 1 VIAL SQ SCH ×2 (06:05→11:47)
[2018-05-13] MEDS: HEPARIN NA (PORCINE) 5,000 UNITS/ML 1ML VIAL SQ SCH ×2 (06:05→14:25)
[2018-05-13] MEDS: ALBUTEROL SO4 0.083% IH SOL 2.5 MG/3 ML VIAL.NEB. NEB PRN (07:15)
[2018-05-13 08:11] LABS: BASO % 0.6 % (0-2.0); EOS % 7.5 % (0-4.5); HEMATOCRIT 33.3 % (32.4-45.2); HEMOGLOBIN 11.3 GM/dL (10.7-15.3); LYMPH % 11.9 % (8-40); MCH 27.7 pg (25.7-33.7); MCHC 34.1 g/dl (32.0-36.0); MEAN CELL VOLUME 81.3 fl (80-96); MONO % 10.7 % (3.8-10.2); NEUT % 69.3 % (42.8-82.8); PLATELET COUNT 370 K/MM3 (134-434); RDW 13.6 % (11.6-15.6)
[2018-05-13 08:41] LABS: ANION GAP 8 MMOL/L (8-16); BLOOD UREA NITROGEN 15 mg/dL (7-18); CALCIUM 8.2 mg/dL (8.5-10.1); CHLORIDE 109 mmol/L (98-107); CO2 26 mmol/L (21-32); CREATININE 0.8 mg/dL (0.55-1.3); MAGNESIUM 2.3 mg/dL (1.8-2.4); PHOSPHOROUS 3.7 mg/dL (2.5-4.9); POTASSIUM 3.8 mmol/L (3.5-5.1); SODIUM 143 mmol/L (136-145)
[2018-05-13 08:52] LABS: GLUCOSE,RANDOM 43 mg/dL (74-106)
[2018-05-13] MEDS: ASPIRIN COATED 81 MG TABLET.EC PO SCH (10:35)
[2018-05-13] MEDS: LISINOPRIL 5 MG TABLET (FP) PO SCH (10:35)
[2018-05-13] MEDS: TICAGRELOR 90 MG TABLET PO SCH (10:35)
[2018-05-13] MEDS: METOPROLOL TARTRATE 25 MG TABLET (FP) PO SCH (10:35)
[2018-05-13] MEDS ORDERED: INSULIN (NOVOLOG) ASPART 100 UNITS/ML 10ML VIAL ONE (11:56)
[2018-05-13] MEDS ORDERED: INSULIN (LEVEMIR) 100 UNITS/ML UNITS SQ ONE (12:03)
[2018-05-13] MEDS: guaiFENesin/D-M SUGAR-FREE/ACLHOL-FREE 118 ML BOTTLE PO PRN (12:06)
[2018-05-13] MEDS ORDERED: HYDROCORTISONE 0.5% TOPICAL CREAM 30 GM TUBE TP PRN (12:09)
--- NOTE | 2018-05-13 13:26 | PN ---
Teaching Attending Note Name of Resident: Saeid Paul ATTENDING PHYSICIAN STATEMENT I saw and evaluated the patient. I reviewed the resident's note and discussed the case with the resident. I agree with the resident's findings and plan as documented. SUBJECTIVE:states breathing is improved. now stating that rash is becoming pruritic. also c/o pedal edema denies CP, SOB< fever, chills, N/V/C/D had slight dizzyness this AM and sugar noted to be 50's. has resolved with juice OBJECTIVE: Last Vital Signs Temp Pulse Resp BP Pulse Ox 97.9 F 96 H 20 136/58 L 96 05/13/18 08:46 05/13/18 08:46 05/13/18 08:46 05/13/18 08:46 05/12/18 21:00 General NAD CV S1 S2 RRR Lungs CTA B/L no wheezing/rales/rhonchi Skin B/L flank maculopapular rash extremiteis 1+ pitting edema RLE, trace LLE ASSESSMENT AND PLAN: 72yo F wtih PMH CAD, DM, HTN and dyslipidemia presented to the ER with SOB and cough x3 days and found to be septic with RUL PNA. also noted to have diffuse rash 1. Sepsis due to RUL PNA- afebrile. on levaquin day 4 of total abx. F/u Cx. Flu swab negative 2. Rash- likely drug reaction. states she had azithromycin in the past with no reaction. now pruritic. low dose steroid cream prn. 3. Pulmonary nodule- 4.5mm. could be reactive. will need repeat CT scan in 3 months 4. pedal edema- will check doppler to r/o DVT. also states she takes diuretic which she did not state on admission. will need to verify medication list 5. hypophosphatemia- resolved 6. SHADIA- due to sepsis. resolved. avoid nephrotoxic agents 7. DM- episode hypoglycemia this AM. likely does not comply with diabetic diet at home. will reduce levemir to 30 units HS at home and monitor sugars closely. improved. iss and BGM. resume metformin on discharge 8. CAD- on brilinta/asa/statin/betablocker 9. HTN- controlled. cont home regimen 10. DVT ppx- hep sq 11. medically optimized for d/c home today
[2018-05-13 13:54] VITALS: BP 139/60; PULSE 86; TEMP 97.6
[2018-05-13] MEDS ORDERED: FUROSEMIDE 20 MG TABLET (FP) PO ONE (14:25)
--- NOTE | 2018-05-13 14:29 | DS ---
Physical Exam: SUBJECTIVE: Patient seen and examined at bedside. Breathing markedly improved. However, had symptomatic hypoglycemic episode in AM w/ random glucose to 43, was diaphoretic, tremulous, and tachycardic. Improved w/ orange juice. OBJECTIVE: Vital Signs Period Temp Pulse Resp BP Sys/Crum Pulse Ox Last 24 Hr 97.6 F-99 F 77-104 20-24 136-144/58-68 96 PHYSICAL EXAM GENERAL: A&Ox3, NAD HEENT: NC/AT, PERRLA, EOMI, MMM NECK: Trachea midline, full range of motion, supple. 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 SKIN: Warm, dry, normal turgor, no rashes or lesions noted. LABS Laboratory Results - last 24 hr 05/12/18 05/12/18 05/13/18 17:24 21:28 06:03 WBC RBC Hgb Hct MCV MCH MCHC RDW Plt Count MPV Absolute Neuts (auto) Neutrophils % Lymphocytes % Monocytes % Eosinophils % Basophils % Nucleated RBC % Sodium Potassium Chloride Carbon Dioxide Anion Gap BUN Creatinine Creat Clearance w eGFR POC Glucometer 87 281 82 Random Glucose Calcium Phosphorus Magnesium 05/13/18 05/13/18 05/13/18 07:50 07:50 08:55 WBC 8.0 RBC 4.10 Hgb 11.3 Hct 33.3 MCV 81.3 MCH 27.7 MCHC 34.1 RDW 13.6 Plt Count 370 D MPV 8.0 Absolute Neuts (auto) 5.6 Neutrophils % 69.3 Lymphocytes % 11.9 D Monocytes % 10.7 H Eosinophils % 7.5 H D Basophils % 0.6 Nucleated RBC % 0 Sodium 143 Potassium 3.8 Chloride 109 H Carbon Dioxide 26 Anion Gap 8 BUN 15 Creatinine 0.8 Creat Clearance w eGFR > 60 POC Glucometer 216 Random Glucose 43 L* Calcium 8.2 L Phosphorus 3.7 Magnesium 2.3 05/13/18 11:43 WBC RBC Hgb Hct MCV MCH MCHC RDW Plt Count MPV Absolute Neuts (auto) Neutrophils % Lymphocytes % Monocytes % Eosinophils % Basophils % Nucleated RBC % Sodium Potassium Chloride Carbon Dioxide Anion Gap BUN Creatinine Creat Clearance w eGFR POC Glucometer 259 Random Glucose Calcium Phosphorus Magnesium HOSPITAL COURSE: Date of Admission:05/11/18 Patient is a 72 y/o F w/ PMHx CAD x 4 stents, HTN, HLD, DM, p/w fever, painful non-productive cough, pleuritic pain, SOB, generalized weakness x [address] chest showed RUL consolidation w/ effusion, CT scan further showed subcentimeter pulmonary nodule. Admitted for CAP, started on Ceftriaxone/ Azithromycin, had reaction to Ceftriaxone and was switched to IV Levofloxacin. Symptoms markedly improved. Pt was started on home dose long-acting insulin, however this resulted in symptomatic hyoglycemia and insulin dose was reduced. Swelling at RLE noted, Doppler was negative, Pt was started on home dose Lasix. Home cardiac medications were given throughout. Patient was switched to PO ABx to complete course, prescribed steroid cream for beta-lactam rash, and had home dose of long-acting insulin reduced pending outpt f/u w/ primary care and cardiology. Patient was informed of pulmonary nodule and need to reassess with repeat CT scan pending resolution of PNA. Date of Discharge: 05/13/18 Minutes to complete discharge: 36 Discharge Summary Reason For Visit: PNEUMONIA Current Active Problems Pneumonia (Acute) Condition: Stable - Instructions Diet, Activity, Other Instructions: You were hospitalized due to cough, fever, and difficulty breathing. Chest Xray and CT scan demonstrated pneumonia in your right lung. You were treated with IV antibiotics and your symptoms improved. Upon discharge, you should take a further 3 days of oral antibiotics. A prescription has been sent to your pharmacy. You are also being prescribed a steroid cream to treat your rash. You were also started on your home dose of insulin. However, you had an episode of low blood sugar and we believe that this dose of insulin may be too high. Please reduce your home dose of Glargine from 40 to 30 units and follow up with your primary medical doctor within 1 week of discharge for further evaluation and management. Please also follow up with Dr. Cunningham, your assembly machine operator, within 1 week of discharge. Otherwise resume your home medications, including Lasix (water pill). You will need a repeat CT scan of your chest to ensure the infection has cleared and to follow up nodules seen. Discuss this with your primary care doctor. If you experience any new or worsening shortness of breath, chest pain, swelling , fever, chills, worsening rash, or any other new or concerning symptom, please return to the Emergency Department. Referrals: Dev Cunningham MD [Staff Physician] - Disposition: HOME - Home Medications Comprehensive Discharge Medication List: Ambulatory Orders Aspirin Coated [Ecotrin -] 81 mg PO DAILY tablet.ec 08/29/17 Atorvastatin Ca [Lipitor] 80 mg PO HS tablet 08/29/17 Lisinopril [Prinivil] 2.5 mg PO DAILY tablet 08/29/17 Metoprolol Tartrate [Lopressor -] 25 mg PO BID tablet 08/29/17 Metformin HCl [Glucophage] 500 mg PO BID 05/11/18 Furosemide [Lasix -] 20 mg PO DAILY 05/13/18 Hydrocortisone 0.5% Cream [Hytone 0.5% Cream -] 1 applic TP BID PRN #1 tube 01/21 Insulin Glargine,Hum.rec.anlog [Lantus Solostar PEN -] 30 units SQ DAILY #0 vial 05/13/18 Pantoprazole Sodium [Protonix -] 40 mg PO DAILY 05/13/18 Ticagrelor [Brilinta -] 90 mg PO BID 05/13/18 levoFLOXacin [Levaquin -] 500 mg PO DAILY #3 tablet 05/13/18 This patient is new to me today: No Emergency Visit: No Critical Care patient: No - Discharge Referral Referred to [facility] Med [facility] No
== END 2018-05-13 15:55 | disposition home or self-care (01) | DRG 871 ==
LOC: JER 18:45 → JERBED 05-11 05:27 → J5S 05-11 08:18 → J6S 05-13 00:11
PROVIDERS: ADMIT Internal Medicine; ATTEND Internal Medicine
DX: A41.9 Sepsis, unspecified organism (principal); J18.9 Pneumonia, unspecified organism; N17.9 Acute kidney failure, unspecified; E87.1 Hypo-osmolality and hyponatremia; J90 Pleural effusion, not elsewhere classified; R50.9 Fever, unspecified; R00.0 Tachycardia, unspecified; I25.10 Atherosclerotic heart disease of native coronary artery without angina pectoris; I10 Essential (primary) hypertension; E83.39 Other disorders of phosphorus metabolism; R91.1 Solitary pulmonary nodule; E11.649 Type 2 diabetes mellitus with hypoglycemia without coma; L27.0 Generalized skin eruption due to drugs and medicaments taken internally; E78.00 Pure hypercholesterolemia, unspecified; E66.3 Overweight; Z68.28 Body mass index [BMI] 28.0-28.9, adult; Z95.5 Presence of coronary angioplasty implant and graft
CPT/HCPCS: 36415; 71046-TC-FY; 71250-TC; 80048; 80053; 81003; 81015; 82009; 82550; 82962; 83605; 83735; 84100; 84484; 85025; 87040; 87086; 87633; 87804; 87899; 93005; 93010; 93970-TC; 94010; 94640; 97116-GP; 97161-GP; 99282-25; J1644

== ENCOUNTER 2018-09-02 13:12 | Emergency (ER) | payer OTHER ==
[2018-09-02 13:20] VITALS: BP 157/50; PULSE 85; TEMP 98.5; BMI 27.4
--- NOTE | 2018-09-02 13:41 | PDOC ---
History of Present Illness - General Chief Complaint: Cold Symptoms Stated Complaint: SOB Time Seen by Provider: 09/02/18 13:23 - History of Present Illness Initial Comments: 09/02/18 13:39 72-year-old female with a past medical history of diabetes hypertension coronary artery disease presents for evaluation of cough without systemic symptoms 3 days Past History - Past Medical History Allergies/Adverse Reactions: Allergies Allergy/AdvReac Type Severity Reaction Status Date / Time No Known Allergies Allergy Verified 09/02/18 13:20 Home Medications: Ambulatory Orders Aspirin Coated [Ecotrin -] 81 mg PO DAILY tablet.ec 08/29/17 Atorvastatin Ca [Lipitor] 80 mg PO HS tablet 08/29/17 Lisinopril [Prinivil] 2.5 mg PO DAILY tablet 08/29/17 Metoprolol Tartrate [Lopressor -] 25 mg PO BID tablet 08/29/17 Metformin HCl [Glucophage] 500 mg PO BID 05/11/18 Furosemide [Lasix -] 20 mg PO DAILY 05/13/18 Hydrocortisone 0.5% Cream [Hytone 0.5% Cream -] 1 applic TP BID PRN #1 tube 01/21 Insulin Glargine,Hum.rec.anlog [Lantus Solostar PEN -] 30 units SQ DAILY #0 vial 05/13/18 Pantoprazole Sodium [Protonix -] 40 mg PO DAILY 05/13/18 Ticagrelor [Brilinta -] 90 mg PO BID 05/13/18 levoFLOXacin [Levaquin -] 500 mg PO DAILY #3 tablet 05/13/18 Anemia: No Asthma: No Cancer: No Cardiac Disorders: Yes CVA: No COPD: No DVT: No Dementia: No Diabetes: Yes GI Disorders: No Disorders: No HTN: No Hypercholesterolemia: Yes Liver Disease: No Seizures: No Thyroid Disease: No - Surgical History Abdominal Surgery: No Appendectomy: No Cardiac Surgery: Yes (4 stents 2017) Cholecystectomy: No Lung Surgery: No Neurologic Surgery: No Orthopedic Surgery: No - Immunization History Immunization Up to Date: Yes - Suicide/Smoking/Psychosocial Hx Smoking Status: No Smoking History: Never smoked Have you smoked in the past 12 months: No Number of Cigarettes Smoked Daily: 0 Hx Alcohol Use: No Drug/Substance Use Hx: No Substance Use Type: None Review of Systems - Review of Systems Constitutional: No: Fever Respiratory: Yes: Cough *Physical Exam - Vital Signs Last Vital Signs Temp Pulse Resp BP Pulse Ox 98.5 F 85 16 157/50 L 95 09/02/18 13:17 09/02/18 13:17 09/02/18 13:17 09/02/18 13:17 09/02/18 13:17 - Physical Exam Comments: 09/02/18 13:39 HEAD: NC/AT EYES: Conjuntiva clear Ears: Canals and TM's normal NOSE: No d/c THROAT: Moist mucous membrances, oral pharanx clear, uvula midline NECK: Supple without adenopathy CARDIAC: S1 S2 LUNGS: CTA Full and Equal breath sounds ABDOMEN: Soft NT ND MS: Full ROM in all joints without edema NEUROLOGIC: No gross sensory or motor deficits, NVID SKIN: Normal color and temperature no lesions or rashes Medical Decision Making - Medical Decision Making 09/02/18 13:39 Benign examination and this 72-year-old female with a cough. Multiple comorbidities. I will have her follow-up with her primary care physician. I suspect a viral upper respiratory infection at this point *DC/Admit/Observation/Transfer Diagnosis at time of Disposition: Viral upper respiratory infection - Discharge Dispostion Disposition: HOME Condition at time of disposition: Stable Decision to Admit order: No - Referrals Referrals: Kayleigh Trevino MD [Staff Physician] - - Patient Instructions Printed Discharge Instructions: DI for Viral Upper Respiratory Infection -- Adult Additional Instructions: Return to the emergency room for worsening symptoms. Please follow-up with your internal medicine doctor in 1-2 days for further evaluation and treatment options. Please follow-up without fail. - Post Discharge Activity
== END 2018-09-02 13:45 | disposition home or self-care (01) ==
LOC: JERFT 13:12
DX: J06.9 Acute upper respiratory infection, unspecified (principal); B97.89 Other viral agents as the cause of diseases classified elsewhere; I25.10 Atherosclerotic heart disease of native coronary artery without angina pectoris; I10 Essential (primary) hypertension; Z95.5 Presence of coronary angioplasty implant and graft; E11.9 Type 2 diabetes mellitus without complications; Z79.4 Long term (current) use of insulin
CPT/HCPCS: 99281-25

== ENCOUNTER 2021-10-22 21:17 | Emergency (ER) | payer OTHER ==
[2021-10-22 21:28] VITALS: BMI 25.8
[2021-10-22] MEDS ORDERED: IBUPROFEN 400 MG TABLET (FP) PO ONE ×2 (22:15→22:27)
[2021-10-22 22:19] LABS: BASO % 1.1 % (0-2.0); EOS % 5.1 % (0-4.5); HEMATOCRIT 41.5 % (32.4-45.2); HEMOGLOBIN 14.1 GM/dL (10.7-15.3); LYMPH % 15.1 % (8-40); MCH 27.7 pg (25.7-33.7); MCHC 33.9 g/dl (32.0-36.0); MEAN CELL VOLUME 81.6 fl (80-96); MEAN PLT VOLUME 7.3 fl (7.5-11.1); NEUT % 69.7 % (42.8-82.8); PLATELET COUNT 268 10^3/uL (134-434); RBC 5.09 M/mm3 (3.60-5.2); RDW 13.9 % (11.6-15.6); WHITE BLOOD COUNT 8.7 K/mm3 (4.0-10.0)
[2021-10-22 22:41] LABS: ALBUMIN 3.9 g/dl (3.4-5.0); BLOOD UREA NITROGEN 30.2 mg/dL (7-18); CALCIUM 9.2 mg/dL (8.5-10.1)
[2021-10-22 22:44] LABS: CREATININE 1.4 mg/dL (0.55-1.3)
[2021-10-22 22:46] LABS: BILIRUBIN,TOTAL 0.2 mg/dL (0.2-1); TOT PROT 7.5 g/dl (6.4-8.2)
[2021-10-22] MEDS ORDERED: SODIUM CHLORIDE 0.9% 500 ML INFUS.BAG IV ONE (23:28)
[2021-10-23] MEDS ORDERED: CYCLOBENZAPRINE HCL 10 MG TABLET (FP) PO ONE (00:22)
[2021-10-23] MEDS ORDERED: CYCLOBENZAPRINE HCL 5 MG TABLET ONE (00:30)
[2021-10-23 01:41] VITALS: BP 151/59; PULSE 59; RESP 19; TEMP 98.8
[2021-10-23] MEDS ORDERED: ACETAMINOPHEN 500 MG TABLET (FP) PO ONE ×3 (02:00→06:40)
[2021-10-23] MEDS ORDERED: ACETAMINOPHEN 500 MG TABLET (FP) ONE ×2 (02:39→06:43)
[2021-10-23 03:11] LABS: CALCIUM 8.4 mg/dL (8.5-10.1)
[2021-10-23 03:15] LABS: CREATININE 1.3 mg/dL (0.55-1.3)
[2021-10-23] MEDS ORDERED: IBUPROFEN 400 MG TABLET (FP) PO ONE ×3 (06:41→06:43)
== END 2021-10-23 06:57 | disposition home or self-care (01) ==
LOC: JER 21:17
DX: M25.561 Pain in right knee (principal)
CPT/HCPCS: 36415; 73560-TC-RT-FY; 80048; 80053; 82550; 85025; 93971-TC; 99285-25